=== PATIENT | male | born 1965 | race African-American/Black ===

== ENCOUNTER 2021-02-11 15:03 | Inpatient (IN) | payer OTHER ==
[~2021-02-11] VITALS: Ht 172.7 cm; Wt 83.7 kg
[2021-02-11] MEDS ORDERED: METO50TA7 PO ×2 (15:23→22:23)
[2021-02-11] MEDS ORDERED: SERT50TA29 PO (15:23)
[2021-02-11] MEDS ORDERED: BENA40TA5 PO (15:23)
[2021-02-11] MEDS ORDERED: PROP20TA72 PO (15:23)
[2021-02-11] MEDS ORDERED: ELIQ5TAB PO ×2 (15:23→22:23)
[2021-02-11] MEDS ORDERED: ASPI81CH33 PO (15:23)
[2021-02-11] MEDS ORDERED: MIRT1TAB15 PO (15:23)
[2021-02-11] MEDS ORDERED: ZOCO80TA PO (15:23)
--- NOTE | 2021-02-11 16:20 | REP ---
INDICATION: CHEST PAIN COMPARISON: None. TECHNIQUE: Portable AP view of the chest FINDINGS: The cardiac silhouette appears enlarged. The lung lord are clear without acute consolidation, effusion, or pneumothorax. Skeletal structures are intact. IMPRESSION: Cardiomegaly. No consolidation or effusion appreciated. <Electronically signed by Clarence Mercado > 02/11/21 [id number]
[2021-02-11] MEDS ORDERED: METOPROLOL TART 50 MG TAB PO ONE (16:35)
[2021-02-11] MEDS: METOPROLOL 5 MG/5 ML VIAL IV SCH ×3 (16:44→18:04)
[2021-02-11 16:51] LABS: BASO % 0.7 % (0.0-1.0); EOS # 0.1 10^3/uL (0.0-0.5); EOS % 1.5 % (0.0-3.0); HEMATOCRIT 40.1 % (42.0-52.0); HEMOGLOBIN 12.9 g/dl (13.5-17.5); LYMPH # 1.5 10^3/uL (1.5-5.0); LYMPH % 35.6 % (24.0-44.0); MEAN CORPUSCULAR HEMOGLOBIN 28.9 pg (27.0-33.0); MEAN CORPUSCULAR HGB CONC 32.2 g/dl (32.0-36.5); MEAN CORPUSCULAR VOLUME 89.9 fl (80.0-96.0); MONO # 0.7 10^3/uL (0.0-0.8); MONO % 16.5 % (2.0-8.0); NEUTROPHILS # 1.9 10^3/uL (1.5-8.5); NEUTROPHILS % 45.5 % (36.0-66.0); PLATELET COUNT, AUTOMATED 177 10^3/uL (150-450); RED BLOOD COUNT 4.46 10^6/uL (4.30-6.10); WHITE BLOOD COUNT 4.1 10^3/uL (4.0-10.0)
[2021-02-11 17:16] LABS: ALBUMIN 3.2 GM/DL (3.2-5.2); BILIRUBIN,DIRECT 0.2 MG/DL (0.0-0.2); BILIRUBIN,TOTAL 0.7 MG/DL (0.2-1.0); CALCIUM LEVEL 8.7 MG/DL (8.5-10.1); CREATININE FOR GFR 1.68 MG/DL (0.70-1.30); GLOMERULAR FILTRATION RATE 54.8 (>56); MB/CK RELATIVE INDEX 0.71 (< OR =4); POTASSIUM SERUM 4.2 MEQ/L (3.5-5.1); THYROID STIMULATING HORMONE 1.12 uIU/ML (0.358-3.740); TOTAL PROTEIN 6.6 GM/DL (6.4-8.2); TROPONIN I 0.28 NG/ML (< 0.10)
[2021-02-11] MEDS ORDERED: NS 1,000 ML IV ONE (17:50)
[2021-02-11] MEDS ORDERED: BENAZEPRIL 20 MG TAB PO ONE (18:45)
[2021-02-11] MEDS ORDERED: AMIODARONE HCL 150 MG in IV 1 EA IV STA (20:02)
[2021-02-11] MEDS ORDERED: DIGOXIN INJ 0.5 MG/2 ML AMP (J1160) IV STA (20:08)
[2021-02-11 20:19] LABS: CK-MB VALUE MASS 1.4 NG/ML (<3.6); MB/CK RELATIVE INDEX 1.19 (< OR =4); TROPONIN I 0.25 NG/ML (< 0.10)
[2021-02-11] MEDS ORDERED: APIXABAN 5 MG TAB (ELIQUIS) PO ONE (21:35)
[2021-02-11 21:48] LABS: RSV AMPLIFICATION NEGATIVE (NEGATIVE)
[2021-02-11] MEDS ORDERED: CAPS25CR TOP (22:23)
[2021-02-11] MEDS ORDERED: ERGO500029 PO (22:23)
[2021-02-11] MEDS ORDERED: ZOLO100T PO (22:23)
[2021-02-11] MEDS ORDERED: HOME MED LIST COMPLETE! XX SCH (22:25)
[2021-02-11] MEDS ORDERED: HEPARIN SOD (PORCINE) 5000UNITS/ML 1ML VIAL/SYRINGE IV PRN (22:55)
[2021-02-11] MEDS ORDERED: HEPARIN DRIP 25,000 UNITS in IV 1 EA IV SCH (22:55)
--- OUTSIDE RECORDS SUMMARY | 2021-02-11 23:04 | CCD ---
Author Author [facility] Organization [facility] Address Unknown Phone Unavailable Care Team Providers Care Filling Station Attendant Name Role Phone Maximo Salmeron MD Unavailable Unavailable Maximo Salmeron MD Unavailable Unavailable Maximo Salmeron MD Unavailable Unavailable Maximo Salmeron MD Unavailable Unavailable Maximo Salmeron MD Unavailable Unavailable Maximo Salmeron MD Unavailable [facility]available [facility] Unavailable Unavailable TURRIN, KHURRAM Unavailable Unavailable TURRIN, KHURRAM Unavailable Unavailable TURRIN, KHURRAM Unavailable Unavailable TURRIN, KHURRAM Unavailable Unavailable SHELLIE DOUGLAS Unavailable Unavailable NON, PHYSICIAN STAFF Unavailable Unavailable Re-disclosure Warning The records that you are about to access may contain information from federally-assisted alcohol or drug abuse programs. If such information is present, then the following federally mandated warning applies: This information has been disclosed to you from records protected by federal confidentiality rules (42 CFR part 2). The federal rules prohibit you from making any further disclosure of this information unless further disclosure is expressly permitted by the written consent of the person to whom it pertains or as otherwise permitted by 42 CFR part 2. A general authorization for the release of medical or other information is NOT sufficient for this purpose. The Federal rules restrict any use of the information to criminally investigate or prosecute any alcohol or drug abuse patient.The records that you are about to access may contain highly sensitive health information, the redisclosure of which is protected by Article 27-F of the [facility] Public Health law. If you continue you may have access to information: Regarding HIV / AIDS; Provided by facilities licensed or operated by the [facility] Office of Mental Health; or Provided by the [facility] Office for People With Developmental Disabilities. If such information is present, then the following [facility] mandated warning applies: This information has been disclosed to you from confidential records which are protected by state law. State law prohibits you from making any further disclosure of this information without the specific written consent of the person to whom it pertains, or as otherwise permitted by law. Any unauthorized further disclosure in violation of state law may result in a fine or retirement sentence or both. A general authorization for the release of medical or other information is NOT sufficient authorization for further disc losure. Allergies and Adverse Reactions Type Description Substance Reaction Status Data Source(s ) No Known Allergies No Known Allergies [facility] Encounters Encounter Providers Location Date Indications Data Source(s ) Emergency Attender: Maximo Salmeron MDConsultant: [facility] 01/23/2021 08:03:00 PM EDT - 01/24/2021 10:28:00 AM EDT [facility] Patient discharged. Emergency Attender: KHURRAM BARONConsultant: [facility]IN[facility] 01/22/2021 06:23:00 PM EDT - 01/22/2021 09:35:00 PM EDT [facility] Patient discharged. Outpatient Attender: SHELLIE Aguirresultant: STAFF NON 05/16/2020 08:34:00 AM EST - 05/16/2020 09:34:00 AM EST [facility] Medications Medication Brand Name Start Date Product Form Dose Route Admi nistrative Instructions Pharmacy Instructions Status Indications Reaction Description Data Source(s) 50 mg 01/30/2021 12:00:00 AM EDT tablet 28 TAKE ONE TABLET BY MOUTH TWICE A DAY TAKE ONE TABLET BY MOUTH TWICE A DAY SOLD: 01/30/2021 [facility] Insurance Providers Payer name Policy type / Coverage type Policy ID Covered constitution party ID Covered constitution party's relationship to fuentes Policy Fuentes Plan Information MEDICARE A [id number] Self [id number] Self [id number] Self [id number] OTHER B [id number] Self [id number] OPTUM [facility] [id number] SP [id number] [facility] OPTUM - FAC [id number] ADMINSTRATION -O/P [id number] Problems, Conditions, and Diagnoses Code Display Name Description Problem Type Effective Dates Data Source(s) Z7982 [facility] (current) use of aspirin [facility] (cu rrent) use of aspirin Diagnosis 01/23/2021 08:03:00 PM EDT [facility] Z5320 Procedure and treatment not carried out because of patient's decision for unspecified reasons Procedure and treatment not carried out because of patient's decision for unspecified reasons Diagnosis 01/23/2021 08:03:00 PM EDT [facility] V74386 CONTACT WITH AND SUSPECTED EXPOSURE TO C OVID-19 CONTACT WITH AND SUSPECTED EXPOSURE TO COVID-19 Diagnosis 01/23/2021 08:03:00 PM EDT [facility] E7800 Pure hypercholesterolemia, unspecified P ure hypercholesterolemia, unspecified Diagnosis 01/23/2021 08:03:00 PM EDT [facility] I10 Essential (primary) hypertension Essential (primary) h ypertension Diagnosis 01/23/2021 08:03:00 PM EDT [facility] I4891 Unspecified atrial fibrillation Unspecified atrial fib rillation Diagnosis 01/23/2021 08:03:00 PM EDT [facility] R002 Palpitations Palpitations Diagnosis 01/23/2021 08:03:00 P M EDT [facility] K429 Umbilical hernia without obstruction or gangrene Umbilical hernia without obstruction or gangrene Diagnosis 05/16/2020 08:34:00 AM [facility] R109 Unspecified abdominal pain Unspecified abdominal pain Diagnosis 05/16/2020 08:34:00 AM [facility] Surgeries/Procedures No Information Results ID Date Data Source [id number] 01/29/2021 10:21:00 [place] [address] RESPIRATORY CARE REPORT ==== ---------NAME------- NUMBER SEX AGE ADMIT DISC. XRAY# F/C TYPEGREENE GRAHAM K [id number] 01/23/21 01/24/21 [id number] LBA E/R DATE OF : 1965 M/R# [id number] PH#: [phone] TR-02 LOCATION: EMERGENCY DEPT EKG 28760 COMPLE TE:01/24/21 08:53 CJM 63097 PHYSICIAN: FAVIOLA Florez Name Value Range Interpretation Code Description Data Enid rce(s) Supporting Document(s) ID Date Data Source [id number] 01/28/2021 09:58:00 [place] [address] RESPIRATORY CARE REPORT ==== ---------NAME------- NUMBER SEX AGE ADMIT DISC. XRAY# F/C VAUGHN Jones [id number] 01/22/21 01/22/21180920 LBA E/R DATE OF : 1965 M/R# [id number] PH#: [phone] VT-10 LOCATION: EMERGENCY DEPT EKG 82715 COMPLE TE:01/23/21 04:56 AJP 00146 PHYSICIAN: LORAINE GRIFFIN Name Value Range Interpretation Code Description Data Enid rce(s) Supporting Document(s) ID Date Data Source [id number] 01/24/2021 10:02:00 [place] [address] PROGRESS NOTENAME: EMORY Jones ROOM#: [id number] OF : 1965 MR#: [id number] DATE: 01/23/21 OF SERVICE: 01/24/21SUBJECTIVE: 55-year-old male I was asked to come to the emergency room to admit. He had been in theER the previous night for atrial fibrillation with rapid ventricular response, had signed out AMA. He cameback to the emergency room last night. Again, was in atrial fibrillation with rapid ventricular response of 136.The emergency room doctor had given him Cardizem and placed him on a drip. I went to the emergency roomthis morning to admit the patient. He had just been taken off the drip. His heart rate was in the 70-80s, but thenwas going up to the 100s. When I went into see the patient, assess him and get a history and physical, he statedthat he did not want to stay. He had pets he had to take care of. I reviewed with him that he was in anabnormal heart rhythm. He could have a cardiac arrest. He could have blood clots. He verbalizedunderstanding. He stated that he could not stay and wished to sign out against medical advice. I notified , the emergency room physician, that the patient was refusing to be admitted, assessed and wishedto sign out against medical advice.DD: NABILA Stewart 01/24/21 09:45DT: SONJA 01/24/21 10:01DS: NABILA Stewart 01/24/21 13:44 1 Name Value Range Interpretation Code Description Data Enid rce(s) Supporting Document(s) ID Date Data Source [id number] 01/23/2021 08:03:00 PM EDT [facility] 1 OrderSheet [facility] Emergency Department [address] [place] [address] #: ext- [phone] 01/23/2021 19:49 Patient: GRAHAM CAT Sex: M : 1965 Age: 55yWEIGHT:81.6 kg HEIGHT:68 inches BMI:27.4ALLERGIES: No Known Drug AllergyCHIEF COMPLAINT: palpitationsDIAGNOSIS: Atrial fibrillation, Atrial fibrillation, Hypertensive disorderLAB ORDERSOrder Description Priority Entered Acknowledged InitialedCBC w Diff STAT 20:12 01/23/2021 20:23 Faviola Luciano Jack ; Isaura Reason for ordering with alerts: Clinical consideration given -- 20:12 01/23/2021 Maximo SalmeronTroponin-T STAT 20:12 01/23/2021 20:23 Faviola Luciano Jack ; Isaura Reason for ordering with alerts: Clinical consideration given -- 20:12 01/23/2021 Maximo SalmeronTSH STAT 20:12 01/23/2021 Initialed: 20:12 Maximo Salmeron Jack ; Cancelled: Duplicate Order 20:12 Maximo Salmeron Reason for ordering with alerts: Clinical consideration given -- 20:12 01/23/2021 Maximo SalmeronBMP STAT 20:12 01/23/2021 20:23 Faviola Luciano Jack ; Isaura Reason for ordering with alerts: Clinical consideration given -- 20:12 01/23/2021 Maximo SalmeronCOVID- 19 CAH (Not STAT 20:16 01/23/2021 20:27 Mateo,Symptomatic as Maximo Salmeron ; Eli R.N.Defined by CDC)(01/23/2021) (NotFirst Test) (NotHospitalized) (Not) (NotResident inCongregate CareSetting) (NotEmployed inHealthcare Setting)DIAGNOSTIC STUDY ORDERS 2 OrderSheet [facility] Emergency Department [address] [place] [address] Phone #: ext- [phone] 01/23/2021 19:49 Patient: GRAHAM CAT Sex: M : 1965 Age: 55yOrder Description Priority Entered Acknowledged InitialedMEDICATION/IV/DRIP/FLUID ORDERSOrder Description Priority Entered Acknowledged InitialedCardizem IVP 10 20:12 01/23/2021 20:25 Mateo,mg (NOW x1) Maximo Salmeron ; Eli R.NJerardo Reason for ordering with alerts: Clinical consideration given -- 20:12 01/23/2021 Bienvenido Salmeronm Drip IV : 5 20:12 01/23/2021 20:26 Mateo,mg/hr (Add 125 mg Maximo Salmeron ; Eli R.NJerardo(25 mL) to 100 mLNS to get 125mg/125 mL (1mg/mL)) Reason for ordering with alerts: Clinical consideration given -- 20:12 01/23/2021 aMximo SalmeronAspirin EC PO 325 20:12 01/23/2021 20:24 Mateo,mg (NOW x1, Do Maximo Salmeron ; Eli R.N.not crush or chew)Metoprolol PO 50 09:50 01/24/2021 10:00 Cherrie Fonsecamg (NOW x1) Vero Milian R.N. ;- (benazepril HCL 09:51 01/24/2021 Cancelled: Physician Order 09:58 Raymundo,40 mg Po x 1 dose Vero Milian RStarrnow) ;- (lisinipril 40mg 09:59 01/24/2021 10:00 Garima Fonseca po) Cherrie Fonseca R.N.; R.N. Verbal order per; Vero Milian- (eliquis 5 mg PO) 10:13 01/24/2021 10:19 Cherrie Fonseca Victoria RStarr ; NERAL ORDERSOrder Description Priority Entered Acknowledged InitialedEKG 20:12 01/23/2021 20:23 Faviola Luciano Jack ; Katelyn Reason for ordering with alerts: Clinical consideration given -- 20:12 01/23/2021 Missy Salmeronet: (Low Sodium 08:50 01/24/2021 08:50 DorisDiet) Netta Sandoval RN RN; Verbal order per; Maximo Salmeron 3 OrderSheet [facility] Emergency Department [address] [place] [address] Phone #: ext- [phone] 01/23/2021 19:49 Patient: GRAHAM CAT Sex: M : 1965 Age: 55y[Electronically signed by Maximo Salmeron (07:06 01/24/2021)][Electronically signed by Vero Milian (10:22 01/24/2021)][Electronically signed by Cherrie Fonseca R.N. (01/24/2021)][Electronically locked by Cherrie Fonseca R.N. (01/24/2021)] Name Value Range Interpretation Code Description Data Enid rce(s) Supporting Document(s) ID Date Data Source [id number] 01/23/2021 08:03:00 PM EDT [facility] 1 Medication Reconciliation Report [facility] Emergency Department [address] [place] [address] Phone #: ext- [phone] 01/23/2021 19:49 Patient: GRAHAM CAT Sex: M : 1965 Age: 55yWeight: 81.6 kgHeight/Length: 68 in.BMI: 27.4ALLERGIES: No Known Drug AllergyThe patient's Home Medications are listed below:STOP TAKING THE FOLLOWING MEDICATIONS: Sodium Fluoride Mouthwash Mouth/ThroatCONTINUE TAKING THE FOLLOWING MEDICATIONS: Mirtazapine Oral (15 mg), daily Simvastat in Oral (80 mg), dailyTHE FOLLOWING MEDICATIONS NEED TO BE RECONCILED: Aspirin Oral (81 mg), daily Benazepril HCl Oral (40 mg), daily Capsaicin External (0.025 %) Dextran 70-Hypromellose (PF) Ophthalmic (0.1-0.3 %), 4x a day Ergocalciferol Oral (1.25 MG (99902 UT)), daily Propranolol HCl Oral (20 mg), 2x a day, prn Sertraline HCl Oral (100 mg) 2 tablets, daily Sildenafil Citrate Oral (100 mg), daily, prnThe source(s) of the original Home Medication information:Not obtained. 2 Medication Reconciliation Report [facility] Emergency Department [address] [place] [address] Phone #: ext- [phone] 01/23/2021 19:49 Patient: GRAHAM CAT Sex: M : 1965 Age: 55yThe following Medications were given to the patient in the Emergency Department:Aspirin EC [PO] PO 325 mg, administered: 20:24 1Cardizem [IVP] IVP 10 mg, administered: 20:25 01/23/2021ardizem [IV Drip] Drip IV bolus 0, then 125 mg 5 mg/hr, administered: 20:26 01/23/2021Metoprolol [PO] PO 50 mg, administered: 10:00 01/24/2021isinipril PO 40mg, administered: 10:00 01/24/2021liquis PO 5mg, administered: 10:19 01/24/2021The following Medications were prescribed to the patient:metoprolol tartrate 50 mg tablet Take 1 tablet twice a day for 30 days -- Dispense 60 tablet. Refills: 0.Substitution permitted. Note to Pharmacy - USE Rx DISCOUNT CARD: $7.44, BIN:[id number],PCN:YOHANA, Group:DARRICK, ID:[id number].Pharmacy - [facility] - [address] ; [place], [place] [id number]. .Eliquis 5 mg tablet Take 1 tablet twice a day for 30 days -- Dispense 60 tablet. Refills: 0. Substitutionpermitted. Note to Pharmacy - USE Rx DISCOUNT CARD: $503.47, BIN:[id number], PCN:YOHANA,Group:[id number], ID:[id number].Pharmacy - [facility] #[facility] - [address] ; [place], [place] [id number]. . -- Vero Milian Name Value Range Interpretation Code Description Data Enid rce(s) Supporting Document(s) ID Date Data Source [id number] 01/23/2021 08:03:00 PM EDT [facility] 1 Medication Administration Record [facility] Emergency Department [address] [place] [address] Phone #: ext- [phone] 01/23/2021 19:49 Patient: GRAHAM CAT Sex: M : 1965 Age: 55yWeight: 81.6 kgHeight/Length: 68 inBMI: 27.4ALLERGIES: No Known Drug Allergy Date/Time Medication Administered Medication OrderedGiven CARDIZEM [IVP] (DILTIAZEM HCL) Cardizem IVP 10 mg (NOW x1)20:25 01/23/2021 Dose: 10 mg IVPLEli shaffer, R.N. Site: #1 right ACStart CARDIZEM [IV DRIP] Cardizem Drip IV : 5 mg/hr (Add20:26 01/23/2021 Dose: 125 mg Drip IV 125 mg (25 mL) to 100 mL NS toLEli shaffer, R.N. Rate: 5 mg/hr get 125 mg/125 mL (1 mg/mL))---- Dispensed: 100 mL bagStop Site: #1 right AC08:30 01/24/2021avery Sandoval RNGiven ASPIRIN EC [PO] Aspirin EC PO 325 mg (NOW x1,20:24 01/23/2021 Dose: 325 mg Tablets PO Do not crush or chew)Eli Galindo R.N.Given METOPROLOL [PO] Metoprolol PO 50 mg (NOW x1)10:00 01/24/2021 Dose: 50 mg Tablets Cherrie Michel R.N.Given lisinipril * - (lisinipril 40mg now po)10:00 01/24/2021 Dose: 40mg * Cherrie Michel R.N.Given eliquis * - (eliquis 5 mg PO)10:19 01/24/2021 Dose: 5mg * Cherrie Michel R.N. Name Value Range Interpretation Code Description Data Enid rce(s) Supporting Document(s) ID Date Data Source [id number] 01/23/2021 08:03:00 PM EDT [facility] 1 General Instructions [facility] Emergency Department [address] [place] [address] Phone #: ext- [phone] 01/23/2021 19:49 Patient: GRAHAM CAT Sex: M : 1965 Age: 55y New onset atrial fibrillation with uncontrolled rate.(Electronically signed by Maximo Salmeron 01/24/2021 07:06) New onset atrial fibrillation with uncontrolled rate. Uncontrolled hypertension. The patient should follow up with a primary care provider for blood pressure management.INSTRUCTIONS (you were advised admission as you have new onset atrial fibrillation but you decided to sign out AMA. you were advised of risk of leaving AMA including stroke physical , sexual as well as mental disability. you understand the risks of leaving AA and still decided to leave. take the Metoprolol 2 x day to control the heart rate as well as your benzepril for your BP. take the eliquis 5 mg twice a day to prevent you from developing blood lots. [facility] Kilpatrick in am.). Your Current Medications: STOP TAKING THE FOLLOWING MEDICATIONS: Propranolol HCl Oral : Tablet 20 mg, daily. Sodium Fluoride Mouthwash Mouth/Throat. CONTINUE TAKING THE FOLLOWING MEDICATIONS: Aspirin Oral : Tablet Chewable 81 mg, daily. Benzonatate Oral. Capsaicin External. Dextran 70-Hypromellose (PF) Ophthalmic. 2 General Instructions [facility] Emergency Department [address] [place] [address] Phone #: ext- [phone] 01/23/2021 19:49 Patient: GRAHAM CAT Sex: M : 1965 Age: 55yMirtazapine Oral : Tablet 15 mg, daily.Sertraline HCl Oral : Tablet 100 mg, daily.Sildenafil Citrate Oral : Tablet 100 mg, daily.Simvastatin Oral : Tablet 80 mg, daily.Prescription Medications:metoprolol tartrate 50 mg tablet Take 1 tablet twice a day for 30 days -- Dispense 60 tablet. Refills: 0.Substitution permitted. Note to Pharmacy - USE Rx DISCOUNT CARD: $7.44, BIN:[id number],REHANN:YOHANA, Group:EMR, ID:[id number].[facility] [address] [place] [address] [phone]. .Eliquis 5 mg tablet Take 1 tablet twice a day for 30 days -- Dispense 60 tablet. Refills: 0. Substitutionpermitted. Note to Pharmacy - USE Rx DISCOUNT CARD: $503.47, BIN:[id number], PCN:YOHANA,Group:EMR, ID:[id number].[facility] [address] [place] [address] [phone]. .Follow-up:Follow up with your healthcare provider today. Blood pressure screening was not performed during thisvisit because the patient has an active diagnosis of hypertension. The patient [facility] for blood pressure management.AMA warnings: Time of assessment: 09:42 01/24/2021. Oriented to person, place, and time. Givesappropriate answers and rational explanation of refusal of care. No indication for involuntary commitmentis present, signs of psychosis, auditory hallucinations, delusional thinking or suicidal ideations. N o slurredspeech, visual hallucinations or homicidal ideations. Speaks coherently.Clinical Impression: the patient has the capacity to make decisions regarding the medical care offered.Relevant issues reviewed and discussed with the patient. Aware of suspected diagnosis suggested byscreening exam. The suspected diagnosis, based upon the initiated medical screening exam, is atrialfibrillation with RVR and has been discussed with the patient. Acknowledges understanding of thereasons for recommendations regarding admission to facility. The recommended medical care beingrefused is admisson and has been discussed with the patient. The risks of refusing recommended carethat were disclosed and acknowledged are , quadriplegia, paraplegia, permanent mental impairment,loss of limb, loss of sexual function and loss of current lifestyle. Discharge instructions were provided. ADDITIONAL INFORMATIONEstablished High Blood Pressure 3 General Instructions [facility] Emergency Department [address] [place] [address] Phone #: ext- [phone] 01/23/2021 19:49 Patient: GRAHAM CAT Sex: M : 1965 Age: 55yHigh blood pressure (hypertension) is a long-term (chronic) disease. Often healthcare providers don'tknow what causes it. But it can be caused by certain health conditions and medicines.If you have high blood pressure, you may not have any symptoms. If you do have symptoms, theymay include: Headache Dizziness Changes in your vision Chest pain Shortness of breathBut even without symptoms, high blood pressure that's not treated raises your risk for heart attack,heart failure, kidney disease, and stroke. High blood pressure is a serious health risk and shouldn't beignored.Blood pressure measurements are given as 2 numbers. Systolic blood pressure is the upper number.This is the pressure when the heart contracts. Diastolic blood pressure is the lower number. This isthe pressure when the heart relaxes between beats. You will see your blood pressure readingswritten together. For example, a person with a systolic p ressure of 118 and a diastolic pressure of 78will have 118/78 written in the medical record.Blood pressure is classified as normal, raised (elevated) or stage 1 or stage 2 high blood pressure: Normal blood pressure. Systolic of less than 120 and diastolic of less than 80 (120/80). Elevated blood pressure. Systolic of 120 to 129 and diastolic less than 80. Stage 1 high blood pressure. Systolic is 130 to 139 or diastolic between 80 to 89. Stage 2 high blood pressure. Systolic is 140 or higher or the diastolic is 90 or higher.Home careIf you have high blood pressure, follow these home care gu idelines to help lower your blood pressure.If you are taking medicines for high blood pressure, these methods may reduce or end your need for 4 General Instructions [facility] Emergency Department [address] [place] [address] Phone #: ext- [phone] 01/23/2021 19:49 Patient: GRAHAM CAT Sex: M : 1965 Age: 55ymedicines in the future. Start a weight-loss program if you are overweight. Cut back on how much salt you get in your diet. Here's how to do this: o Don't eat foods that have a lot of salt. These include olives, pickles, smoked meats, and salted potato chips. o Don't add salt to your food at the table. o Use only small amounts of salt when cooking. Start an exercise program. Talk with your healthcare provider about the type of exercise program that would be best f or you. It doesn't have to be hard. Even brisk walking for 20 minutes 3 times a week is a good form of exercise. Don't take medicines that stimulate the heart. This includes many tjdw-wgv-rhmpenr cold and sinus decongestant pills and sprays, as well as diet pills. Check the warnings about high blood pressure on the label. Before buying any fbhf-yog-wgbmfnk medicines or supplements, always ask the pharmacist about the product's possible interaction with your high blood pressure and your high blood pressure medicines. Stimulants such as amphetamine or cocaine could be deadly for someone with high blood pressure. Never take these. Limit how much caffeine you get in your diet. Switch to caffeine-free products. Stop smoking. If you are a long-time smoker, this can be hard. Talk with your healthcare provider about medicines and nicotine replacement options to help you. Also join a stop-smoking program . This makes it more likely that you will quit for good. Learn how to handle stress. This is an important part of any program to lower blood pressure. Learn about relaxation methods such as meditation, yoga, or biofeedback. If your provider prescribed medicines, take them exactly as directed. Missing doses may cause your blood pressure get out of control. If you miss a dose, check with your healthcare provider or pharmacist about what to do. Think about buying an automatic blood pressure machine to check your blood pressure at home. Ask your provider for a recommendation. You can get one of these at most pharmacies.Using a home blood pressure monitorThe [place] Heart Association advises the following guidelines for home blood pressure monitoring: Don't smoke or drink coffee for 30 minutes before taking your blood pressure. 5 General Instructions [facility] Emergency Department [address] [place] [address] Phone #: ext- [phone] 01/23/2021 19:49 Patient: GRAHAM CAT Sex: M : 1965 Age: 55y Go to the bathroom before the test. Relax for 5 minutes before taking the measurement. Sit with your back supported (don't sit on a couch or soft chair). Keep your feet on the floor uncrossed. Place your arm on a solid flat surface (such as a table) with the upper part of the arm at heart level. Place the middle of the cuff directly above the bend of the elbow. Check the monitor's instruction manual for an illustration. Take multiple readings. When you measure, take 2 to 3 readings one minute apart and record all of the results. Take your blood pressure at the same time every day, or as your healthcare provider advises. Record the date, time, and blood pressure reading. Take the record with you to your next healthcare appointment. If your blood pressure monitor has a built-in memory, just take the monitor with you to your next appointment. Call your provider if you have several high readings. Don't be frightened by one high blood pressure reading. But if you get a few high readings, check in with your healthcare provi amie.Follow-up careYou will need to see your healthcare provider regularly. This is to check your blood pressure and tomake changes to your medicines. Make a follow-up appointment as directed. Bring the record of yourhome blood pressure readings to the appointment.Call [phone] you have any of these: Blood pressure of 180/120 or higher Chest pain or shortness of breath Weakness of an arm or leg or one side of the face Problems speaking or seeingWhen to get medical adviceCall your healthcare provider right away if any of these occur: Severe headache Throbbing or rushing sound in the ears 6 General Instructions [facility] Emergency Department [address] [place] [address] Phone #: ext- [phone] 01/23/2021 19:49 Patient: GRAHAM CAT Sex: M : 1965 Age: 55y Nosebleed Sudden severe pain in your belly (abdomen) Extreme drowsiness, confusion, or fainting Dizzine ss or spinning feeling (vertigo) [employer]. [address] [place] [address], [place] [address]. All rights reserved. This information is not intended as asubstitute for professional medical care. Always follow your healthcare professional's instructions.Atrial FibrillationAtrial fibrillation is a condition in which the heart beats in an irregular pattern. It is the most commonabnormal heart rhythm. It is caused by a problem in the heart's electrical pathways within the muscleof the upper chambers of the heart (atria). It can be a sign of heart disease or other health problemsthat affect the heart.Heart palpitations are a common symptom of atrial fibrillation. This is the feeling that your heart isfluttering, or beating fast, hard, or irregular. When the heart beats too fast, it doesn't pump blood verywell. This can cause other symptoms such as anxiety, fatigue, shortness of breath, chest pain,dizziness, or fainting. Atrial fibrillation may come and go. It can last from a few hours to a couple of 7 General Instructions [facility] Emergency Department [address] [place] [address] ne #: ext- [phone] 01/23/2021 19:49 [id number] Sex: M : 1965 Age: 55ydays. 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 They include feeling less able to exercise.Some people have no symptoms.Atrial fibrillation is more common in older adults. It may be caused by heart disease or otherconditions in the body that affect the heart. They include: Coronary artery disease (atherosclerosis) . It is sometimes called blocked arteries. High blood pressure Disease of the heart valves Enlarged heart Heart failureAtrial fibrillation can also occur without heart disease because of: Overactive thyroid (hyperthyroid) Chronic lung disease (COPD, emphysema, or bronchitis) Heavy alcohol use Heart stimulants such as cocaine, amphetamines, diet pills, certain decongestant cold medicines, caffeine, or nicotine Infection Blood clot in the lung (pulmonary embolus) Diabetes Chronic kidney disease Obesity Extreme and continued athletic conditioning Certain genetic diseasesTreating or removing these causes will help your treatment for atrial fibrillation. It will also make it lesslikely for it to come back.Atrial fibrillation can alternate back and forth with another abnormal rhythm called atrial flutter. Atrialflutter is a more regular heart rhythm. It also linked to an increased risk for stroke. Proper treatmentcan lower your risk for stroke. 8 General Instructions [facility] Emergency Department [address] [place] [address] Phone #: ext- [phone] 01/23/2021 19:49 Patient: GRAHAM CAT Sex: M : 1965 Age: 55yHome careFollow these guidelines when caring for yourself at home: Go back to your usual activities as soon as you are feeling back to normal. If you smoke, stop smoking. Contact your healthcare provider or a local stop- smoking program for help. Don't use stimulants like alcohol, cocaine, amphetamines, diet pills, certain decongestant cold medicines, caffeine, or nicotine. If your provider prescribed medicine to stop atrial fibrillation from coming back, take it exactly as directed. Some medicines must be taken every day, not just when you have symptoms. This will help them work as they should. If you were prescribed a blood-thinning medicine called warfarin to lower your risk for stroke, have your blood tested regularly as advised by your provider. This will make sure you are getting the dose that is right for you. It also lowers your risk for side effects. You may have been prescribed other blood-thinning medicines that don't need regular testing.Follow-up careFollow up with your healthcare provider, or as advised.When to seek medical adviceCall your healthcare provider right away if any of these following occur: Swelling in the legs that gets worse Unexpected weight gain Bleeding easier than normal Pain, redness, or swelling in one legCall 911Calling 911 is the fastest and safest way to get the emergency department. The paramedics can alsostart treatment on the way to the hospital, if needed.Call 911 or seek medical help right away if any of the following occur: Weakness of an arm or leg or one side of the face Chest pain 9 General Instructions [facility] Emergency Department [address] [place] [address] Phone #: ext- [phone] 01/23/2021 19:49 Patient: GRAHAM CAT Sex: M : 1965 Age: 55y Shortness of breath, or feeling that you can't get enough air Feeling lightheaded, faint, or dizzy Your heartbeat is very rapid, slow, or irregular compared with your regular heartbeat Bleeding that is not easily controlled Trouble with speech or vision Extreme drowsiness, confusion, dizziness, or fainting [phone] [employer]. [address] [place] [address]. All rights reserved. This information is not intended as asubstitute for professional medical care. Always follow your healthcare professional's instructions. You have been given the following additional information: Hypertension, Established Atrial Fibrillation(Electronically signed by Vero Milian 01/24/2021 10:22) Name Value Range Interpretation Code Description Data Enid rce(s) Supporting Document(s) ID Date Data Source [id number] 01/23/2021 08:03:00 PM EDT [facility] 1 Clinical Report - Nurses [facility] Emergency Department [address] [place] [address] Phone #: ext- [phone] 01/23/2021 19:49 Patient: GRAHAM CAT Sex: M : 1965 Age: 55yTRIAGEArrived by private vehicle.Acuity: LEVEL 2.Chief Complaint: (irregular heart beat).19:58 01/23/21. Alert. No acute distress.This started yesterday. ( Patient was sent to this ED from [place] yesterday for new-onset A-Fib. Pt wasevaluated in ED and was to be [facility]; pt signed out AMA last night to makearrangements for his pets. Pt states he has returned to be evaluated for his a-fib again.). No difficultybreathing, fever or cough.SEPSIS SCREEN: SIRS SCREEN NEGATIVE: heart rate greater than 90. SEPSIS SCREEN NEGATIVE.No suspected or confirmed signs of infection present. --19:58 01/23/21 Natali Colón R.N.19:58 01/23/2021 BP: 159/119. HR: 141. RR: 20. Temp: 97.7 F. Pain level now 0/10. --19:58 01/23/21Natali Colón R.N.Weight: 81.6 kg. Height/Length: 68 inches. BMI: 27.4. --19:56 01/23/21 Natali Colón R.N.MedicationsAspirin Oral (Tablet Delayed Release 81 mg), daily. Capsaicin External (Cream 0.025 %). Dextran 70-Hypromellose (PF) Ophthalmic (Solution 0.1- 0.3 %), 4x a day. Propranolol HCl Oral (Tablet 20 mg), 2x a day as needed. Sertraline HCl Oral (Tablet 100 mg) 2 tablets, daily. Sildenafil Citrate Oral (Tablet 100 mg), daily as needed. --20:05 01/23/21 Cherrie Fonseca R.N. Mirtazapine Oral (Tablet 15 mg), daily. Simvastatin Oral (Tablet 80 mg), daily. Sodium Fluoride Mouthwash Mouth/Throat. --20:05 01/23/21 Natali Colón R.N. Benazepril HCl Oral (Tablet 40 mg), daily. --09:43 01/24/21 Cherrie Fonseca R.N. Ergocalciferol Oral (Capsule 1.25 MG (44256 UT)), daily. --09:46 01/24/21 Cherrie Fonseca R.N.The following entry was struck by Cherrie Fonseca R.N., 09:46 (01/24/21) Reason - other. Benzonatate Oral. --20:05 01/23/21 Natali Colón R.N.The following entry was struck and corrected by Cherrie Fonseca R.N., 09:45 (01/24/21) Reason for correction -other(correction). Sildenafil Citrate Oral (Tablet 100 mg), daily. --20:05 01/23/21 Natali Colón R.N.The following entry was struck and corrected by Cherrie Fonseca R.N., 09:45 (01/24/21) Reason for correction -other(correction). 2 Clinical Report - Nurses [facility] Emergency Department [address] [place] [address] Phone #: ext- [phone] 01/23/2021 19:49 Patient: GRAHAM CAT Sex: M : 1965 Age: 55ySertraline HCl Oral (Tablet 100 mg), daily. --20:05 01/23/21 Natali Colón R.N.The following entry was struck and corrected by Cherrie Fonseca R.N., 09:44 (01/24/21) Reason for correction -other(correction).Propranolol HCl Oral (Tablet 20 mg), daily. --20:05 01/23/21 Natali Colón R.N.The following entry was struck and corrected by Cherrie Fonseca R.N., 09:43 (01/24/21) Reason for correction -other(correction).Dextran 70-Hypromellose (PF) Ophthalmic. --20:05 01/23/21 Natali Colón R.N.The following entry was struck and corrected by Cherrie Fonseca R.N., 09:43 (01/24/21) Reason for correction -other(correction).Capsaicin External. --20:05 01/23/21 Natali Colón R.N.The following entry was struck and corrected by Cherrie Fonseca R.N., 09:43 (01/24/21) Reason for correction - other(correction).Aspirin Oral (Tablet Chewable 81 mg), daily. --20:05 01/23/21 Natali Colón R.N. .AllergiesNo Known Drug Allergy. --20:05 01/23/21 Natali Colón R.N.PROBLEMS:Atrial Fibrillation.Anxiety Reaction.Hypercholesterolemia.PTSD.Hypertension. --20:06 01/23/21 Natali Colón R.N.ADDITIONAL SURGERIES:Inguinal Hernia Repair.Knee Surgery. --20:06 01/23/21 Natali Colón R.N.Dkfnogg21:58 01/23/21.PAST MEDICAL HX: Immunizations: up-to-da te.SOCIAL HX: Never smoker. No alcohol use or drug use. He was offered HIV testing but declined andhepatitis C testing but declined. He has not traveled outside the [place]Infectious disease exposure: The patient was not exposed to C- diff, MRSA, VRE or Coronavirus.SELF HARM ASSESSMENT: Self harm assessment was performed. The patient answered "no" to thequestion(s) "Have you recently felt down, depressed, or hopeless?", "Do you have thoughts of harming orkilling yourself?", "Do you have a plan for harming or killing yourself?" and "Have you recently had thoughtsabout harming or killing others?".ABUSE ASSESSMENT: No report of abuse.NUTRITIONAL RISK ASSESSMENT: The nutritional risk assessment revealed no deficiencies. 3 Clinical Report - Nurses [facility] Emergency Department [address] [place] [address] Phone #: ext- [phone] 01/23/2021 19:49 Patient: GRAHAM CAT Sex: M : 1965 Age: 55y FUNCTIONAL ASSESSMENT: Functional assessment: no impairments noted. LEARNING NEEDS ASSESSMENT: The learning needs assessment revealed no barriers. FALL RISK ASSESSMENT: Fall risk assessment completed. No risk factors identified. SKIN INTEGRITY ASSESSMENT: Skin integrity risk assessment completed. No skin integrity risk identified. --01/23/21 Natali Colón R.N. FAMILY HX: Father: Diabetes Mellitus. --20:01/23/21 Maximo Salmeron Mother: Essential Hypertension. --20:01/23/21 Maximo Salmeron. Interventions 19:01/23/21. Identification band on patient. To treatment room. --01/23/21 Natali Colón R.N.PHYSICAL ASSESSMENTGENERAL / NEURO / PSYCH: Alert. Oriented X 4. Appears in no acute distress.HEENT: Mucous membranes are pink.RESPIRATORY: Respirations not labored. Chest nontender. Breath sounds within normal limits.CVS: Cardiac rhythm: atrial with rapid ventricular response.GI / : Abdomen soft and nontender.EXTREMITIES: No lower extremity edema.SKIN: Skin is warm and dry. Normal skin turgor. Skin is non-tender. --20:01/23/21 Eli Galindo R.N.NURSING PROGRESS NOTES20:01/23/21. monitoring tech, NIBP monitor and pulse oximeter placed on patient; registered nurse cardiac telemetry-Lead II; monitor alarms on. Patient gowned. Reassurance given. Two patient identifiers checked. Calllight placed in reach. Side rails up x 1. Bed placed in lowest position. Brakes of bed on. Patient readyfor evaluation- ED physician and PA notified. --20:01/23/21 Natali Colón R.N. 20:07 01/23/2021 Site #1 started via IV in the right antecubital space with an 20g angiocath, with aseptic technique and good blood return; one attempt. Saline lock flushed with 10 mL saline. --20:01/23/21 Eli Galindo R.N. 20:01/23/2021 Aspirin EC PO Tablets 325 mg given. Allergies verified and confirmed 5 rights. Information reviewed with patient including reason for taking this medication, signs of allergic reaction and precautions. Verbalizes understanding. --20:01/23/21 Eli Galindo R.N. 20:01/23/2021 Cardizem (dilTIAZem HCl) IVP 10 mg given over 2 minute(s) via site #1. Allergies verified and confirmed 5 rights. IV patency established. IV site checked: no pain, redness, or swelling. IV flushed thoroughly pre- and post-medication administration. IVP given by RN. Information reviewed with patient including reason for taking this medication, signs of allergic reaction and precautions. Verbalizes 4 Clinical Report - Nurses [facility] Emergency Department [address] [place] [address] Phone #: ext- [phone] 01/23/2021 19:49 Patient: GRAHAM CAT Sex: M : 1965 Age: 55yunderstanding. --20:01/23/21 Eli Galindo R.N.20:01/23/2021 Started 125 mg of Cardizem Drip IV in bag #1 100 mL; at 5 mg/hr via site #1. via IVpump. Allergies verified and confirmed 5 rights. IV patency established. IV site checked: no pain, redness,or swelling. IV flushed thoroughly pre- and post-medication administration. Information reviewed withpatient including reason for taking this medication, signs of allergic reaction and precautions. Verbalizesunderstanding. --20:01/23/21 Eli aGlindo R.N.20:27 01/23/21. BP: 152/122. MAP: 132. HR: 133. RR: 16. O2 saturation: 100%. Additional comments:cardiazem gtt started . --20:28 01/23/21 Eli Galindo R.N.GENERAL / NEURO / PSYCH: Denies anxiety.HEENT: Denies headache.RESPIRATORY: Denies difficulty breathing. No respiratory distress. [place] th sounds normal.CVS: Denies chest pain. Cardiac rhythm: atrial fibrillation with rapid ventricular response.GI / : Denies nausea.SKIN: Skin is warm and dry. Skin color within normal limits. --20:28 01/23/21 Eli Galindo R.N.monitoring tech, NIBP monitor and pulse oximeter placed on patient. Reassessment after medicationadministered. He reports no complaints and he has had no adverse reaction. Overall patient status isimproved. ( Cardizem gtt infusing at 5mg /hr).GENERAL / NEURO / PSYCH: Denies anxiety.HEENT: Denies headache.RESPIRATORY: Denies difficulty breathing.CVS: Denies chest pain.GI / G U: Denies nausea. --20:39 01/23/21 Eli Galindo R.N.GENERAL / NEURO / PSYCH: Denies anxiety.HEENT: Denies headache.RESPIRATORY: Denies difficulty breathing. No respiratory distress. Breath sounds normal.CVS: Denies chest pain.GI / : Denies nausea.SKIN: Skin is warm and dry. Skin color within normal limits. --20:56 01/23/21 Eli Galindo R.N.20:55 01/23/21. HR: 110. RR: 19. O2 saturation: 99%. Pain level now: 0/10. --20:56 01/23/21 Eli Galindo R.N.21:06 01/23/21. BP: 128/108. MAP: 114. HR: 118. RR: 19. O2 saturation: 99%. Pain level now: 0/10.--21:06 01/23/21 Eli Galindo R.N.RESPIRATORY: No respiratory distress. Breath sounds normal.CVS: Cardiac rhythm: atrial fibrillation.SKIN: Skin is warm and dry. Skin color within normal limits. --21:07 01/23/21 Eli Galindo R.N. 5 Clinical Report - Nurses [facility] Emergency Department [address] [place] [address] Phone #: ext- [phone] 01/23/2021 19:49 Patient: GRAHAM CAT Sex: M : 1965 Age: 55y( Cardizem gtt increased to 10 mg/hr per MD order).GENERAL / NEURO / PSYCH: Denies anxiety.HEENT: Denies headache.RESPIRATORY: Denies difficulty breathing. No respiratory distress. Breath sounds normal.CVS: Denies chest pain.GI / : Denies nausea.SKIN: Skin is warm and dry. --21:23 01/23/21 Eli Galindo R.N.21:23 01/23/21. HR: 116. --21:23 01/23/21 Eli Galindo R.N.CVS: Cardiac rhythm: atrial fibrillation. --21:23 01/23/21 Eli Galindo R.N.22:11 01/23/21. BP: 139/103. MAP: 115. HR: 101. RR: 17. O2 saturation: 99% on room air. Additionalcomments: cardizem gtt at 10 ml/hr . --22:13 01/23/21 Eli Galindo R.N.Rounding: Pain: denies pain. Position: states comfortable. Per true care / toileting: assisted with toileting.Proximity of possessions / care items: call light within easy reach. Plug ins: assured IV pump plugged in;checked status of equipment in use; located all cords, tubes, and lines to prevent fall hazard. Setexpectations: advised patient of rounding protocol timing and asked if they needed anything else at thistime. --22:13 01/23/21 Eli Galindo R.N.GENERAL / NEURO / PSYCH: Denies anxiety.HEENT: Denies headache.RESPIRATORY: Denies difficulty breathing. No respiratory distress present. No respiratory distress.Breath sounds normal. No decreased breath sounds.CVS: Denies chest pain. Cardiac rhythm: atrial fibrillation.GI / : Denies nausea.SKIN: Skin is warm and dry. Skin color within normal limits. Skin color normal. --22:13 01/23/21 Eli Galindo R.N.22:21 01/23/21. BP: 148/112. MAP: 124. HR: 92. RR: 16. O2 saturation: 99%. Pain level now: 0/10.--22:22 01/23/21 Eli Galindo R.N.Patient waiting for admit bed. --22:23 01/23/21 Eli Galindo R.N.22:44 01/23/21. BP: 130/102. MAP: 111. HR: 85. RR: 16. O2 saturation: 98% on room air. --22:4501/23/21 Eli Galindo R.N.The patient reports no complaints, he is resting quietly and he has had no adverse reaction. ( Cardizemgtt remain at 10 mg/hr. cont. cardiac monitoring in place).GENERAL / NEURO / PSYCH: Denies anxiety.HEENT: Denies headache.RESPIRATORY: Denies difficulty breathing. No respiratory distress. Breath sounds normal.CVS: Denies chest pain. 6 Clinical Report - Nurses [facility] Emergency Department [address] [place] [address] Phone #: ext- [phone] 01/23/2021 19:49 Patient: GRAHAM CAT Sex: M : 1965 Age: 55yGI / : Denies nausea.SKIN: Skin is warm and dry. Skin color within normal limits. --22:46 01/23/21 Eli Galindo R.N.22:51 01/23/21. BP: 122/104. MAP: 110. HR: 86. RR: 17. O2 saturation: 99%. Pain level now: 010.--22:52 01/23/21 Eli Galindo R.N.Cardiac rhythm: atrial fibrillation.GENERAL / NEURO / PSYCH: Denies anxiety.HEENT: Denies headache.RESPIRATORY: Denies difficulty breathing. No respiratory distress. Breath sounds normal.CVS: Denies chest pain.GI / : Denies nausea.SKIN: Skin is warm and dry. Skin color within normal limits. --22:52 01/23/21 Eli Galindo R.N.The patient reports no complaints and he is calm and resting quietly.GENERAL / NEURO / PSYCH: Denies anxiety.HEENT: Denies headache.RESPIRATORY: Denies difficulty breathing. No respiratory distress. Breath sounds normal.CVS: Denies chest pain. Cardiac rhythm: atrial fibrillation.GI / : Denies nausea.SKIN: Skin is warm and dry. Skin color within normal limits. --23:23 01/23/21 Eli Galindo R.N.23:22 01/23/21. BP: 137/100. MAP: 112. HR: 93. RR: 16. O2 saturation: 96% on room air. --23: Eli Galindo R.N.23:34 01/23/21. HR: 96. --23:34 01/23/21 Eli Galindo R.N.00:36 01/24/21. BP: 130/98. MAP: 108. HR: 78. RR: 16. O2 saturation: 18%. Pain level now: 010.--00:38 01/24/21 Eli Galindo R.N.Rounding: Pain: assessed pain level and denies pain. Position: states comfortable. Personal care /toileting: denies toileting needs. Proximity of possessions / care items: call light within easy reach. Plug ins:assured IV pump plugged in; checked status of equipment in use; located all cords, tubes, and lines toprevent fall hazard. Set expectations: advised patient of rounding protocol timing and asked if they neededanything else at this time. The patient reports no complaints.GENERAL / NEURO / PSYCH: Denies anxiety.HEENT: Denies headache.RESPIRATORY: Denies difficulty breathing. No respiratory distress. Breath sounds normal.CVS: Denies chest pain. Cardiac rhythm: atrial fibrillation.GI / : Denies nausea.SKIN: Skin is warm and dry. Skin color within normal limits. --00:38 01/24/21 Eli Galindo R.N.The patient reports no complaints.GENERAL / NEURO / PSYCH: Denies anxiety. 7 Clinical Report - Nurses [facility] Emergency Department [address] [place] [address] Phone #: ext- [phone] 01/23/2021 19:49 Patient: GRAHAM CAT Sex: M : 1965 Age: 55yHEENT: Denies headache.RESPIRATORY: Denies difficulty breathing. No respiratory distress. Breath sounds normal.CVS: Denies chest pain. Cardiac rhythm: atrial fibrillation.GI / : Denies nausea.SKIN: Skin is warm and dry. Skin color within normal limits. --01:17 01/24/21 Eli Galindo R.N.01:16 01/24/21. BP: 135/106. MAP: 115. HR: 90. RR: 16. O2 saturation: 97% on room air. Pain level now:010. --01:17 01/24/21 Eli Galindo R.N.02:46 01/24/21. BP: 141/111. MAP: 121. HR: 90. RR: 17. O2 saturation: 99%. Pain level now: 0/10.--02:52 01/24/21 Eli Galindo R.N.The patient reports no complaints and he is sleeping. ( pt. resting comfortably on stretcher cardiacmonitoring in place pt. awaiting admission).GENERAL / NEURO / PSYCH: Denies anxiety.HEENT: Denies headache.RESPIRATORY: Denies difficulty breathing. No respiratory distress. Breath sounds normal.CVS: Denies chest pain. Cardiac rhythm: atrial fibrillation.GI / : Denies nausea.SKIN: Skin is warm and dry. Skin color within normal limits. --02:52 01/24/21 Eli Galindo R.N.03:22 01/24/21. BP: 138/118. MAP: 124. HR: 80. RR: 17. O2 saturation: 96% on room air. Pain level now:0. --03:23 01/24/21 Eli Galindo R.N.Rounding: Pain: assessed pain level and denies pain. Position: states comfortable. Proximity ofpossessions / care items: call light within easy reach and moved items closer. Plug ins: assured IV pumpplugged in; checked status of equipment in use; located all cords, tubes, and lines to prevent fall hazard.Set expectations: advised patient of rounding protocol timing and asked if they needed anything else at thistime. The patient reports no complaints and he is resting quietly.GENERAL / NEURO / PSYCH: Denies anxiety.HEENT: Denies headache.RESPIRATORY: Denies difficulty breathing. No respiratory distress. Breath sounds normal.CVS: Denies chest pain. Cardiac rhythm: atrial fibrillation.GI / : Denies nausea.SKIN: Skin is warm and dry. Skin color within normal limits. --03:23 01/24/21 Eli Galindo R.N.04:33 01/24/21. BP: 150/113. MAP: 125. HR: 84. RR: 16. O2 saturation: 97% on room air. Pain level now:0. --04:33 01/24/21 Eli Galindo R.N.The patient reports no complaints and he is resting quietly.GENERAL / NEURO / PSYCH: Denies anxiety.HEENT: Denies headache.RESPIRATORY: Denies difficulty breathing. No respiratory distress. Breath sounds normal.CVS: Denies chest pain. Cardiac rhythm: atrial fibrillation. 8 Clinical Report - Nurses [facility] Emergency Department [address] [place] [address] Phone #: ext- [phone] 01/23/2021 19:49 Patient: GRAHAM CAT Sex: M : 1965 Age: 55yGI / : Denies nausea.SKIN: Skin is warm and dry. Skin color within normal limits. --04:34 01/24/21 Eli Galindo R.N.21:22 01/23/2021 Cardizem Drip IV via IV site #1 Rate Changed: bag #1 increased to 10 mg/hr via IVpump. Confirmed 5 Rights. IV patency established. IV site checked: no pain, redness, or swelling. IVflushed thoroughly. (Verbal order per SALMERON). --04:35 01/24/21 Eli Galindo R.N.The patient reports no complaints and he is resting quietly.GENERAL / NEURO / PSYCH: Denies anxiety.HEENT: Denies headache.RESPIRATORY: Denies difficulty breathing. No respiratory distress. Breath sounds normal.CVS: Denies chest pain. Cardiac rhythm: atrial fibrillation.GI / : Denies nausea.SKIN: Skin is warm and dry. Skin color within normal limits. --06:23 01/24/21 Eli Galindo R.N.06:22 01/24/21. BP: 142/117. MAP: 125. HR: 75. RR: 16. O2 saturation: 93% on room air. Pain level now:0/10. --06:23 01/24/21 Eli Galindo R.N.Patient waiting for admit bed. --06:23 01/24/21 Eli Galindo R.N.07:05 01/24/21. Care transferred and report received (from Eli Galindo RN). --07:18 01/24/21 RYAN Blackman07:18 01/24/21. BP: 144/103. MAP: 116. HR: 93. RR: 20. O2 saturation: 95% on room air. Temp: 97.7 F.Pain level now: 07/03. Describes the quality as dull and aching. Additional comments: headache. --07: Netta Sandoval RN08:00 01/24/21. BP: 131/104. MAP: 113. HR: 86. RR: 20. O2 saturation: 97%. Pain level now: 07/03.--09:29 01/24/21 Netta Sandoval RN08:00 01/24/21. ( Cardiology, Estrella Mtz DYE MIXER to admit patient). --09:29 01/24/21 Netta Sandoval RN08:44 01/24/21. ( [facility] called, no beds available). --09:32 01/24/21 Netta Sandoval RN09:28 01/24/21. ( Patient states to Estrella Mtz that he does not want to be admitted to hospital haspets at home that need to be cared for.). --09:34 01/24/21 Netta Sandoval RN09:48 01/24/21. BP: 152/117. MAP: 128. HR: 103. RR: 31. O2 saturation: 98%. --09:48 01/24/21 Cherrie Fonseca R.N.08:30 01/24/2021 Cardizem Drip IV via IV site #1 Discontinued: bag #1 STOPPED. Total amount infused:125 mL. IV patency established. IV site checked: no pain, redness, or swelling. IV flushed thoroughly.--09:50 01/24/21 Netta Sandoval RN 9 Clinical Report - Nurses [facility] Emergency Department [address] [place] [address] Phone #: ext- [phone] 01/23/2021 19:49 Patient: GRAHAM CAT Sex: M : 1965 Age: 55y 10:00 01/24/2021 Metoprolol PO Tablets 50 mg given. Allergies verified and confirmed 5 rights. Information reviewed with patient including reason for taking this medication, signs of allergic reaction and precautions. Verbalizes understanding. --10:01/24/21 Cherrie Fonseca R.N. 10:01/24/2021 lisinipril * PO 40mg --10:01/24/21 Cherrie Fonseca R.N. 10:01/24/2021 eliquis * PO 5mg --10:01/24/21 Cherrie Fonseca R.N. 10:01/24/2021 Site #1 removed upon discharge. Pressure dressing applied. --10:01/24/21 Cherrie Fonseca R.N. Intake Output PO intake: 120 mL. Urine output: 600 mL with return of yellow-colored clear urine. Urine: normal smelling. --02:52 01/24/21 Eli Galindo R.N. DISPOSITION / DISCHARGE ( U nurse Ankita, RYAN refusing to accept patient for admission. notified.). --21:29 01/23/21 Isaura Luciano ( MD Estrella called about admission orders for patient. States she will put in admission orders in the am since patient is not able to go to the floor.). --22:54 01/23/21 Isaura Luciano 10:19 01/24/21. BP: 146/123. MAP: 130. HR: 100. RR: 18. O2 saturation: 97%. Temp: 98 F. Pain level now: 0/10. Additional comments: Dr. Milian aware of vital signs. --10:20 01/24/21 Cherrie Fonseca R.N. Condition at departure: improved. No learning barriers present. Discharge instructions provided and reviewed with the patient. Reviewed medication(s) side effects, precautions, dosing and course information. Prescription(s) given to the patient and sent electronically to pharmacy. Patient verbalized understanding. Written instructions provided in Icelandic. ( call ct today for appointment). The patient left the Emergency Department against medical advice; patient was unaccompanied. The patient appears to be alert, oriented x4 and coherent. He notified staff prior to leaving the department and stated is leaving (does not have anyone to watch dog). Notified of patient departure. Prior to leaving, he was advised to stay for completion of treatment and return if needed. He was informed of the risks of leaving and verbalized understanding of these risks. He left the Emergency Department ambulatory and via private vehicle. ( signed discharge paperwork). The patient was discharged home and unaccompanied at time of discharge. He left ambulatory and via private vehicle. Patient driving. --10:01/24/21 Cherrie Fonseca R.N. Departure time: 10:28 01/24/2021. --10:28 01/24/21 Cherrie Fonseca R.N. 10 Clinical Report - Nurses [facility] Emergency Department [address] [place] [address] Phone #: ext- [phone] 01/23/2021 19:49 Patient: GRAHAM CAT Sex: M : 1965 Age: 55yLocked/Released at 01/24/2021 10:28 by Cherrie Fonseca R.N. Name Value Range Interpretation Code Description Data Enid rce(s) Supporting Document(s) ID Date Data Source [id number] 01/23/2021 08:03:00 PM EDT [facility] 1 Clinical Report - Physicians/Mid Levels [facility] Emergency Department [address] [place] [address] Phone #: ext- [phone] 01/23/2021 19:49 Patient: GRAHAM CAT Sex: M : 1965 Age: 55y Time Seen: 20:13 01/23/2021. Arrived- By private vehicle. Historian- patient. Disposition decision: 21:20 01/23/2021.HISTORY OF PRESENT ILLNESS Chief Complaint: PALPITATIONS. This started yesterday and is still present. Severity: none. Modifying factors. Not worsened by anything. No loss of appetite or fatigue. No current or associated symptoms. (Although he doesn't feel like his heart is racing, he was diagnosed with new onset Atrial fibrillation yesterday. Returning to ED for admission). Similar symptoms previously. None. Recent medical care: The patient was seen recently in the emergency department and office. ( At new doctor's office yesterday morning, he was told his heart rate was elevated).REVIEW OF SYSTEMSThe patient has had fever. No sore throat, nasal congestion, difficulty breathing, chest pain or abdominalpain. No nausea, vomiting, diarrhea, difficulty with urination or back pain. No headache or blackouts.No difficulty with ambulation. All other systems reviewed and are negative.PAST HISTORYSee nurses notes. Problems: Atrial Fibrillation. Anxiety Reaction. Hypercholesterolemia. PTSD. Hypertension. Additional Surgeries: Inguinal Hernia Repair. Knee Surgery. Medications: Aspirin Oral (Tablet Chewable 81 mg), daily. Benzonatate Oral. Capsaicin External. Dextran 70-Hypromellose (PF) Ophthalmic. Mirtazapine Oral (Tablet 15 mg), daily. Propranolol HCl Oral (Tablet 20 mg), daily. 2 Clinical Report - Physicians/Mid Levels [facility] Emergency Department [address] [place] [address] Phone #: ext- [phone] 01/23/2021 19:49 Patient: GRAHAM CAT Sex: M : 1965 Age: 55y Sertraline HCl Oral (Tablet 100 mg), daily. Sildenafil Citrate Oral (Tablet 100 mg), daily. Simvastatin Oral (Tablet 80 mg), daily. Sodium Fluoride Mouthwash Mouth/Throat. Allergies: No Known Drug Allergy.SOCIAL HISTORYNever smoker. No alcohol use.FAMILY HISTORYFather: Diabetes Mellitus.Mother: Essential Hypertension.ADDITIONAL NOTESThe nursing notes have been reviewed.PHYSICAL EXAMVital Signs: 01/23/2021 20:27 BP: 152/122. MAP: 132. HR: 133. RR: 16. O2 saturation: 100%.01/23/2021 19:58 BP: 159/119. MAP: 132. HR: 141. RR: 20. Temp: 97.7 F.Appearance: Alert. No acute distress.Eyes: Pupils equal, round and reactive to light. Eyes normal inspection.ENT: Nose normal. Pharynx normal.Neck: Normal inspection. Neck supple.CVS: Tachycardia. Abnormal rhythm, which is irregularly irregular. Heart sounds normal. Pulsesnormal.Respiratory: No respiratory distress. Breath sounds normal. Chest nontender.Abdomen: No visible injury. Soft and nontender. Bowel sounds normal. No mass.Back: Normal inspection.Skin: Skin warm and dry. Normal skin color. No rash. Normal skin turgor.Extremities: Extremities exhibit normal ROM. No lower extremity edema.Neuro: Oriented X 3. No motor deficit. No sensory deficit.LABS, X-RAYS, AND EKGEKG: EKG time: 19:50 01/23/2021. No acute ischemia. Rate: 130. Normal QRS complex. LBBB.Normal axis. Normal ST and T waves and QT. The study has been interpreted contemporaneously byme. Interpretation time: 20:00 01/23/2021.Laboratory Tests: COVID-19 CAH: (SHELBY: 01/23/2021 20:30) ( MsgRcvd 01/23/2021 20:56) Final results Test Result Flag Units (Reference) COVID- 19 NOT DETECTED COVID-19 REENTER NOT DETECTED PROCEDURAL CONTROL VALID KIT LOT # _[id number] 01/23/21.4.JNL. KIT EXP DATE _05/21/21 01/23/21.4.JNL. NORMAL RANGE IS NOT DETECTEDThe COVID-19 assay is a rapid molecular in vitro diagnostic testutilizing an isothermal nucleic acid amplification technology for thequalitative 3 Clinical Report - Physicians/Mid Levels [facility] Emergency Department [address] [place] [address] Phone #: ext- [phone] 01/23/2021 19:49 Patient: GRAHAM CAT Sex: M : 1965 Age: 55ydetection of nucleic acid from the SARS-CoV-2 viral RNA in directnasal or nasopharyngeal swabs. Testing shouldbe performed within the first 7days of the onset of symptoms.NEGATIVE RESULTS SHOULD BE TREATED PRESUMPTIVEAND, IF INCO NSISTENT WITHCLINICAL SIGNS AND SYMPTOMS OR NECESSARY FOR PATIENT MANAGEMENT, SHOULD BETESTED WITHDIFFERENT AUTHORIZED OR CLEARED MOLECULAR TESTS. NEGATIVE RESULTSDO NOT PRECLUDE SARS-CoV-2 INFECTION AND SHOULDNOT BE USED THE SOLE BASISFOR PATIENT MANAGEMENT DECISIONS.CBC w Diff: (SHELBY: 01/23/2021 20:18) ( MsgRcvd 01/23/2021 20:30) Final results Test Result Flag Units (Reference) CBC W/AUTOMATED DIFF COMPLETE BLOOD COUNT WBC 3.9 L 10/uL (4.2 - 11.0) RBC 4.48 L 10/uL (4.50 - 6.30) HEMOGLOBIN 13.1 L g/dL (14.0 - 16.0) HEMATOCRIT 39.4 L % (41.0 - 51.0) MCV 87.9 fL (80.0 - 94.0) MCH 29.2 pg (27.0 - 34.0) MCHC 33.2 g/dL (31.0 - 36.0) RDW 12.7 % (11.5 - 14.8) PLATELETS 158 10/uL (150 - 450) MPV 10.8 H fL (7.4 - 10.4) NEUT 36.5 L % (37.0 - 80.0) LYMPH 41.5 H % (25.0 - 40.0) MONO 14.0 H % (3.0 - 8.0) EOS 6.7 % (0.0 - 7.0) BASO 1.0 % (0.0 - 2.0) %IG 0.3 H % (0.0 - 0.0) %NRBC 0.0 % (0.0 - 0.0) #NEUT 1.41 L 10/uL (2.00 - 6.90) #LYMPH 1.60 10/uL (0.60 - 3.40) #MONO 0.54 10/uL (0.00 - 0.90) #EOS 0.26 10/uL (0.00 - 0.70) #BASO 0.04 10/uL (0.00 - 0.20) #IG 0.01 10/uL (0.00 - 0.10) #NRBC 0.00 10/uL (0.00 - 0.00) MANUAL DIFF NOT INDICATED RBC MORPH NOT INDICATEDTroponin-T: (SHELBY: 01/23/2021 20:18) ( [facility] 01/23/2021 20:59) Final results Test Result Flag Units (Reference) TROPONIN T <0.01 NG/ML (0.00 - 0.10) TROPONIN T0.1 ng/ml Recommended as the clinical threshold value forTroponin T.TSH: (SHELBY: 01/23/2021 20:12) ( [facility] 01/23/2021 20:13) CanceledBMP: (SHELBY: 01/23/2021 20:18) ( [facility] 01/23/2021 20:59) Final results Test Result Flag Units (Reference) BASIC METABOLIC PANEL BASIC METABOLIC PANEL SODIUM 139 mEq/L (134 - 153) POTASSIUM 4.3 mEq/L (3.6 - 5.0) CHLORIDE 104 mEq/L (98 - 107) CO2 25 MEQ/L (22 - 30) GLUCOSE 91 MG/DL (70 - 99) BUN 25 H MG/DL (7 - 21) 4 Clinical Report - Physicians/Mid Levels [facility] Emergency Department [address] [place] [address] Phone #: ext- [phone] 01/23/2021 19:49 Patient: GRAHAM CAT Sex: M : 1965 Age: 55y CREATININE 1.6 H MG/DL (0.7 - 1.5) BUN/CREAT 16 (8 - 27) CALCIUM 8.9 MG/DL (8.4 - 10.2) ANION GAP 10.0 mmol/L (8.0 - 16.0) AGE 55 yrs AFR AMER GFR 58 mL/min NON-AA GFR 48 mL/min Male GFR Interprentation 20-49 yrs >60 mL/min Normal 50-59 yrs >56 mL/min Normal 60-69 yrs >49 mL/min Normal 70-79yrs >42 mL/min Normal 80 and above >35 mL/min Normal Female GFR Interpretation 20-39 yrs >60 mL/min Normal 40-49 yrs >58 mL/min Normal 50-59 yrs >51 mL/min Normal 60-69 yrs >45 mL/min Normal 70-79 yrs >39 mL/min Normal 80 and above >32 mL/min Normal.PROGRESS AND PROCEDURESCourse of Care: 20:34 01/23/21. Newly diagnosed atrial fibrillation, however the heart rate was noted lizeth elevated even in summer. No ischemia on EKG. Critical care performed (35 minutes). Time is exclusive of separately billable procedures. Time includes: direct patient care, patient reassessment, interpretation of data and medical consultation. Discussed case with on-call health care provider. Reviewed test results. Agreed upon treatment plan and dec ision to admit. Old ED records ordered. Disposition: Admitted to the Acute Inpatient Unit, Monitored.CLINICAL IMPRESSION New onset atrial fibrillation with uncontrolled rate.(Electronically signed by Maximo Salmeron 01/24/2021 07:06) Disposition decision: 21:20 01/23/2021.LABS, X-RAYS, AND EKGLaboratory Tests: COVID-19 CAH: (SHELBY: 01/23/2021 20:30) ( MsgRcvd 01/23/2021 20:56) Final results Test Result Flag Units (Reference) 5 Clinical Report - Physicians/Mid Levels [facility] Emergency Department [address] [place] [address] Phone #: ext- [phone] 01/23/2021 19:49 ---- Patient: GRAHAM CAT Sex: M : 1965 Age: 55y COVID-19 NOT DETECTED COVID-19 REENTER NOT DETECTED PROCEDURAL CONTROL VALID KIT LOT # _[id number] 01/23/21.JNL. KIT EXP DATE _05/21/21 01/23/21.JNL. NORMAL RANGE IS NOT DETECTEDThe COVID-19 assay is a rapidmolecular in vitro diagnostic testutilizing an isothermal nucleic acid amplification technology for thequalitativedetection of nucleic acid from the SARS-CoV-2 viral RNA in directnasal or nasopharyngeal swabs. Testing shouldbe performed within the first 7days of the onset of symptoms.NEGATIVE RESULTS SHOULD BE TREATED PRESUMPTIVEAND, IF INCONSISTENT WITHCLINICAL SIGNS AND SYMPTOMS OR NECESSARY FOR PATIENT MANAGEMENT, SHOULD BETESTED WITHDIFFERENT AUTHORIZED OR CLEARED MOLECULAR TESTS. NEGATIVE RESULTSDO NOT PRECLUDE SARS-CoV-2 INFECTION AND SHOULDNOT BE USED THE SOLE BASISFOR PATIENT MANAGEMENT DECISIONS.CBC w Diff: (SHELBY: 01/23/2021 20:18) ( MsgRcvd 01/23/2021 20:30) Final results Test Result Flag Units (Reference) CBC W/AUTOMATED DIFF COMPLETE BLOOD COUNT WBC 3.9 L 10/uL (4.2 - 11.0) RBC 4.48 L 10/uL (4.50 - 6.30) HEMOGLOBIN 13.1 L g/dL (14.0 - 16.0) HEMATOCRIT 39.4 L % (41.0 - 51.0) MCV 87.9 fL (80.0 - 94.0) MCH 29.2 pg (27.0 - 34.0) MCHC 33.2 g/dL (31.0 - 36.0) RDW 12.7 % (11.5 - 14.8) PLATELETS 158 10/uL (150 - 450) MPV 10.8 H fL (7.4 - 10.4) NEUT 36.5 L % (37.0 - 80.0) LYMPH 41.5 H % (25.0 - 40.0) MONO 14.0 H % (3.0 - 8.0) EOS 6.7 % (0.0 - 7.0) BASO 1.0 % (0.0 - 2.0) %IG 0.3 H % (0.0 - 0.0) %NRBC 0.0 % (0.0 - 0.0) #NEUT 1.41 L 10/uL (2.00 - 6.90) #LYMPH 1.60 10/uL (0.60 - 3.40) #MONO 0.54 10/uL (0.00 - 0.90) #EOS 0.26 10/uL (0.00 - 0.70) #BASO 0.04 10/uL (0.00 - 0.20) #IG 0.01 10/uL (0.00 - 0.10) #NRBC 0.00 10/uL (0.00 - 0.00) MANUAL DIFF NOT INDICATED RBC MORPH NOT INDICATEDTroponin-T: (SHELBY: 01/23/2021 20:18) ( MsgRcvd 01/23/2021 20:59) Final results Test Result Flag Units (Reference) TROPONIN T <0.01 NG/ML (0.00 - 0.10) TROPONIN T0.1 ng/ml Recommended as the clinical threshold value forTroponin T.TSH: (SHELBY: 01/23/2021 20:12) ( MsgRcvd 01/23/2021 20:13) CanceledBMP: (SHELBY: 01/23/2021 20:18) ( MsgRcvd 01/23/2021 20:59) Final results Test Result Flag Units (Reference) BASIC METABOLIC PANEL BASIC METABOLIC PANEL 6 Clinical Report - Physicians/Mid Levels [facility] Emergency Department [address] [place] [address] Phone #: ext- [phone] 01/23/2021 19:49 Patient: GRAHAM CAT Sex: M : 1965 Age: 55y SODIUM 139 mEq/L (134 - 153) POTASSIUM 4.3 mEq/L (3.6 - 5.0) CHLORIDE 104 mEq/L (98 - 107) CO2 25 MEQ/L (22 - 30) GLUCOSE 91 MG/DL (70 - 99) BUN 25 H MG/DL (7 - 21) CREATININE 1.6 H MG/DL (0.7 - 1.5) BUN/CREAT 16 (8 - 27) CALCIUM 8.9 MG/DL (8.4 - 10.2) ANION GAP 10.0 mmol/L (8.0 - 16.0) AGE 55 yrs AFR AMER GFR 58 mL/min NON-AA GFR 48 mL/min Male GFR Interprentation 20-49 yrs >60 mL/min Normal 50-59 yrs >56 mL/min Normal 60-69 yrs >49 mL/min Normal 70-79yrs >42 mL/min Normal 80 and above >35 mL/min Normal Female GFR Interpretation 20-39 yrs >60 mL/min Normal 40-49 yrs >58 mL/min Normal 50-59 yrs >51 mL/min Normal 60-69 yrs >45 mL/min Normal 70-79 yrs >39 mL/min Normal 80 and above >32 mL/min Normal.PROGRESS AND PROCEDURESCourse of Care: 09:35 01/24/21. Patient signed out by DR Salmeron at 7 am awaiting for admission I was told to speak with the patient as Estrella Mtz who came to admit the patient told me that the patient now does not want to stay. she came to evaluate the patient. he has been off the cardizem drip now his blood pressure went up and his heart rate went up to 120 again. he refused to stay despite advising home of the risk of signing out AMA including strokes. and permanent disability. he states that he lives by himself and he had dogs and has no one to take care of them.CLINICAL IMPRESSION New onset atrial fibrillation with uncontrolled rate. Uncontrolled hypertension. The patient should follow up with a primary care provider for blood pressure management.INSTRUCTIONS (you were advised admission as you have new onset atrial fibrillation but you decided to sign out AMA. you were advised of risk of leaving AMA including stroke physical , sexual as well as mental disability. you understand the risks of leaving AA and still decided to leave. take the Metoprolol 2 x day to control the heart rate as well as your benzepril for your BP. take the eliquis 5 mg twice a day to prevent you from developing blood lots. [facility] Kilpatrick in am.). Your Current Medications: 7 Clinical Report - Physicians/M id Levels [facility] Emergency Department [address] [place] [address] Phone #: ext- [phone] 01/23/2021 19:49 Patient: GRAHAM CAT Sex: M : 1965 Age: 55ySTOP TAKING THE FOLLOWING MEDICATIONS:Propranolol HCl Oral : Tablet 20 mg, daily.Sodium Fluoride Mouthwash Mouth/Throat.CONTINUE TAKING THE FOLLOWING MEDICATIONS:Aspirin Oral : Tablet Chewable 81 mg, daily.Benzonatate Oral.Capsaicin External.Dextran 70-Hypromellose (PF) Ophthalmic.Mirtazapine Oral : Tablet 15 mg, daily.Sertraline HCl Oral : Tablet 100 mg, daily.Sildenafil Citrate Oral : Tablet 100 mg, daily.Simvastatin Oral : Tablet 80 mg, daily.P rescription Medications:metoprolol tartrate 50 mg tablet Take 1 tablet twice a day for 30 days -- Dispense 60 tablet. Refills: 0.Substitution permitted. Note to Pharmacy - USE Rx DISCOUNT CARD: $7.44, BIN:[id number],PCN:YOHANA, Group:[id number], ID:[id number].[address] [place] [address]. .Eliquis 5 mg tablet Take 1 tablet twice a day for 30 days -- Dispense 60 tablet. Refills: 0. Substitutionpermitted. Note to Pharmacy - USE Rx DISCOUNT CARD: $503.47, BIN:[id number], PCN:YOHANA,Group:[id number], ID:[id number].[employer] [place] [address]. .Follow-up:Follow up with your healthcare provider today. Blood pressure screening was not performed during thisvisit because the patient has an active diagnosis of hypertension. The [facility] for blood pressure management.AMA warnings: Time of assessment: 09:42 01/24/2021. Oriented to person, place, and time. Givesappropriate answers and rational explanation of refusal of care. No indication for involuntary commitmentis present, signs of psychosis, auditory hallucinations, delusional thinking or suicidal ideations. No slurredspeech, visual hallucinations or homicidal ideations. Speaks coherently.Clinical Impression: the patient has the capacity to make decisions regarding the medical care offered.Relevant issues reviewed and discussed with the patient. Aware of suspected diagnosis suggested byscreening exam. The suspected diagnosis, based upon the initiated medical screening exam, is atrialfibrillation with RVR and has been discussed with the patient. Acknowledges understanding of thereasons for recommendations regarding admission to facility. The recommended medical care beingrefused is admisson and has been discussed with the patient. The risks of refusing recommended carethat were disclosed and acknowledged are , quadriplegia, paraplegia, permanent mental impairment,loss of limb, loss of sexual function and loss of current lifestyle. Discharge instructions were provided. 8 Clinical Report - Physicians/Mid Levels [facility] Emergency Department [address] [place] [address] Phone #: ext- [phone] 01/23/2021 19:49 Patient: GRAHAM CAT Sex: M : 1965 Age: 55y(Electronically signed by Vero Milian 01/24/2021 10:22) Name Value Range Interpretation Code Description Data [place] rce(s) Supporting Document(s) ID Date Data Source [id number] 01/23/2021 08:03:00 PM EDT [facility] Addenda for GRAHAM CAT VisitID: [id number] Date: 8:51CALLED [facility] [place] @ 8:50AM - THERE ARE NO BEDS AVAILABLE FORTHIS PATIENT AT THE [facility] - [place](Electronically signed by Quinn Yepez - 01/24/2021 8:51) Name Value Range Interpretation Code Description Data [place] rce(s) Supporting Document(s) ID Date Data Source [id number] 01/23/2021 08:30:00 PM EDT [facility] Name Value Range Interpretation Code Description Data [place] rce(s) Supporting Document(s) COVID19 Case rprt NOT DETECTED [facility] This lab was ordered by [facility] ORLY ROSADO and reported by [facility]. ID Date Data Source [id number] 01/23/2021 08:54:00 PM EDT [facility] NOT DETECTEDNOT DETECTED PROCE DURAL CONTROL VALID KIT LOT # _[id number] 01/23/21.JNL. KIT EXP DATE _05/21/21 01/23/21.JNL. NORMAL RANGE IS NOT DETECTEDThe COVID-19 assay is a rapid molecular in vitro diagnostic testutilizing an isothermal nucleic acid amplification technology for thequalitative detection of nucleic acid from the SARS-CoV-2 viral RNA in directnasal or nasopharyngeal swabs. Testing should be performed within the f irst 7days of the onset of symptoms.NEGATIVE RESULTS SHOULD BE TREATED PRESUMPTIVE AND, IF INCONSISTENT WITHCLINICAL SIGNS AND SYMPTOMS OR NECESSARY FOR PATIENT MANAGEMENT, SHOULD BETESTED WITH DIFFERENT AUTHORIZED OR CLEARED MOLECULAR TESTS. NEGATIVE RESULTSDO NOT PRECLUDE SARS-CoV-2 INFECTION AND SHOULD NOT BE USED THE SOLE BASISFOR PATIENT MANAGEMENT DECISIONS. Name Value Range Interpretation Code Description Data [place] rce(s) Supporting Document(s) ID Date Data Source [id number] 01/23/2021 08:59:00 PM EDT [facility] Name Value Range Interpretation Code Description Data [facility] rce(s) Supporting Document(s) BASIC METABOLIC PANEL [facility] BASIC METABOLIC PANEL Sodium [Moles/volume] in Serum or Plasma 139 mEq/L 134 - 153 [facility] Potassium [Moles/volume] in Serum or Plasma 4.3 mEq/L 3.6 - 5.0 [facility] Chloride [Moles/volume] in Serum or Plasma 104 mEq/L 98 - 107 [facility] Carbon dioxide, total [Moles/volume] in Serum or Plasma 25 MEQ/L 22 - 30 [facility] Glucose [Mass/volume] in Serum or Plasma 91 MG/DL 70 - 99 [facility] BUN 25 MG[facility] Creat[facility] [Mass/volume] in Serum or Plasma 1.6 MG/DL 0.7 - 1.5 H [facility] BUN/CREAT 16 8 - 27 [facility] Calcium [Mass/volume] in Serum or Plasma 8.9 MG/DL 8.4 - 10.2 [facility] Anion gap 3 in Serum or Plasma 10.0 mmol/L 8.0 - 16.0 [facility]GE 55 [facility] AFR AMER GFR 58 mL/min [facility] NON-AA GFR 48 mL/min [facility] isabela Male GFR Inter prentation 20-49 yrs >60 mL/min Normal 50-59 yrs >56 mL/min Normal 60-69 yrs >49 mL/min Normal 70-79yrs >42 mL/min Normal 80 and above >35 mL/min Normal Female GFR Interpretation 20-39 yrs >60 mL/min Normal 40-49 yrs >58 mL/min Normal 50-59 yrs >51 mL/min Normal 60-69 yrs >45 mL/min Normal 70-79 yrs >39 mL/min Normal 80 and above >32 mL/min Normal ID Date Data Source [id number] 01/23/2021 08:59:00 PM EDT [facility] Name Value Range Interpretation Code Description Data [place] rce(s) Supporting Document(s) TROPONIN T <0.01 NG/ML 0.00 - 0.10 [facility] TROPONIN T0.1 ng/ml Recommended as the c linical threshold value forTroponin T. ID Date Data Source [id number] 01/23/2021 08:30:00 PM T [facility] Name Value Range Interpretation Code Description Data [place] rce(s) Supporting Document(s) CBC W/AUTOMATED DIFF [facility] COMPLETE BLOOD COUNT Leukocytes [#/volume] in Blood by Automated count 3.9 10^3/uL 4.2 - 1 1.0 L [facility] Erythrocytes [#/volume] in Blood by Automated count 4.48 10^6/uL 4. 50 - 6.30 L [facility] Hemoglobin [Mass/volume] in Blood 13.1 g/dL 14.0 - 16.0 L [facility] Hematocrit [Volume Fraction] of Blood by Automated count 39.4 % 4 1.0 - 51.0 L [facility] Erythrocyte mean corpuscular volume [Entitic volume] by Auto mated count 87.9 fL 80.0 - 94.0 [facility] Erythrocyte mean corpuscular hemoglobin [Entitic mass] by Automated count 29.2 pg 27.0 - 34.0 [facility] Erythrocyte mean corpuscular hemoglobin concentration [Mass/volume] by Automated count 33.2 g/dL 31.0 - 36.0 [facility] Erythrocyte distribution width [Ratio] by Automated count 12.7 % 11.5 - 14.8 [facility] Platelets [#/volume] in Blood by Automated count 158 10^3/uL 150 - 45 0 [facility] Platelet mean volume [Entitic volume] in Blood by Automated count 10.8 fL 7.4 - 10.4 H [facility] Neutrophils/100 leukocytes in Blood by Automated count 36.5 % 37. 0 - 80.0 L [facility] Lymphocytes/100 leukocytes in Blood by Manual count 41.5 % 25.0 - 40.0 H [facility] Monocytes/100 leukocytes in Blood by Automated count 14.0 % 3.0 - 8.0 H [facility] Eosinophils/100 leukocytes in Blood by Automated count 6.7 % 0.0 - 7.0 [facility] Basophils/100 leukocytes in Blood by Automated count 1.0 % 0.0 - 2.0 [facility] %IG 0.3 % 0.0 - [facility] % 0.0 - 0.0 [facility] al Neutrophils [#/volume] in Blood by Automated count 1.41 10^3/uL 2.00 - 6.90 L [facility] Lymphocytes [#/volume] in Blood by Automated count 1.60 10^3/uL 0.60 - 3.40 [facility] Monocytes [#/volume] in Blood by Automated count 0.54 10^3/uL 0.00 - 0.90 [facility] Eosinophils [#/volume] in Blood by Automated count 0.26 10^3/uL 0.00 - 0.70 [facility] Basophils [#/volume] in Blood by Automated count 0.04 10^3/uL 0.00 - 0.20 [facility] #IG 0.01 10^3/uL 0.00 - 0.10 [facility] #NRBC 0.00 10^3/uL 0.00 - 0.00 [facility] MANUAL DIFF NOT INDICATED [facility] RBC MORPH NOT INDICATED [facility] spital ID Date Data Source [id number] 01/23/2021 10:28:00 AM EDT [facility] [address] [place] [address] PHONE: [phone] FAX: [phone] Name .................. : EMORY Jones Acct Number.................. : [id number] ROOM. ................. : [address] Number ................... : [id number] Stay type ............. : E/R Discharge Date......... ... : Admit Date ......... : 01/22/21 Admit Phys .................... : LORAINE GRIFFIN Date of ....... : 1965 Family Phys ................... : [facility] Phone .................. : [phone] Age ................................ : 55 Film# .................. .:[id number] Sex ................................. : M Unsigned transcriptions are preliminary reports and do not represent a medical or legal document CHEST PORTABLE [id number] COMPLETE:01/22/21 18:39 [id number] Reas on(s): SOB, new onset A. Fib. PORTABLE CHEST SINGLE VIEW OBTAINED AT 6:57 PM HISTORY: Shortness of breath, new onset atrial fibrillation COMPARISON: None. FINDINGS: Mediastinal and hilar structures are normal. Cardiac silhouette is unremarkable. Lungs are clear. No pulmonary edema. No pleural effusions or pneumothorax. IMPRESSION: No acute disease. Electronically Reviewed and Signed By Khai Sequeira MD , 01/23/21 10:28, SHERLEY Transcribe Initials: RUTH , Transcribe Date: 01/22/21 20:49, Dictation Date: Copy for: EMERGENCY DEPT via modem Copy for: 710 MED REC DISCHARGED Page 1 of 1 Name Value Range Interpretation Code Description Data [place] rce(s) Supporting Document(s) ID Date Data Source [id number] 01/22/2021 06:23:00 PM EDT [facility] 1 OrderSheet [facility] Emergency Department [address] [place] [address] Phone #: ext- [phone] 01/22/2021 18:09 Patient: GRAHAM CAT Sex: M : 1965 Age: 55yWEIGHT:81.6 kg HEIGHT:68 inches BMI:27.4ALLERGIES: No Known Drug AllergyCHIEF COMPLAINT: palpitations, fast heart rateDIAGNOSIS: Atrial fibrillation, Hypertensive disorderLAB ORDERSOrder Description Priority Entered [facility] 18:39 01/22/2021 19:06 Natali Colón Riccardo R.N. M.D.;CMP STAT 18:39 01/22/2021 19:06 Natali Colón Riccardo R.N. M.D.;Lipase STAT 18:39 01/22/2021 19:06 Natali Colón Riccardo R.N. M.D.;Troponin-T STAT 18:39 01/22/2021 19:06 Natali Colón Riccardo R.N. M.D.;BNP STAT 18:39 01/22/2021 19:06 Natali Colón, Khurram R.N. MJerardoDJerardo;TSH STAT 18:39 01/22/2021 19:06 Natali Colón Riccardo R.N. Rajani;DIAGNOSTIC STUDY ORDERSOrder Description Priority Entered Acknowledged InitialedChest Portable 1 STAT 18:39 01/22/2021 18:43 [place] Loraine Khurram unishear operator, Raphael COX(Oxygen?(No)) MHolly; Tech1 Reason for Study: SOB, new onset A. Fib.MEDICATION/IV/DRIP/FLUID ORDERSOrder Description Priority Entered Acknowledged InitialedAspirin PO 18:39 01/22/2021 19:03 Mateusz Colón 81 mg Turrin, Khurram R.N.162 mg M.D.; 2 OrderSheet [facility] Emergency Department [address] [place] [address] Phone #: ext- [phone] 01/22/2021 18:09 Patient: GRAHAM CAT Sex: M : 1965 Age: 55yNS IV : 125 mL/hr 18:40 01/22/2021 18:59 Natali Colón, Khurram R.N. MHolly;Cardizem IVP 15 18:40 01/22/2021 18:59 Natali Colónmg Turrin, Khurram R.N. M.D.;Cardizem Drip IV : 18:40 01/22/2021 19:04 Natali Colón10 mg/hr (Add 125 Turrin, Khurram R.N.mg (25 mL) to 100 M.D.;mL NS to get 125mg/125 mL (1mg/mL))NS IV 500 mL 20:19 01/22/2021 20:24 Katy Colóns: : Bolus 500 Turrin, Khurram R.N.mL (X1) MHolly;GENERAL ORDERSOrder Description Priority Entered Acknowledged InitialedBlood Pressure 18:39 01/22/2021 18:41 Leonard Colónitor Khurram Baron.NJerardo MHolly;[employer] Department Head 18:39 01/22/2021 18:41 Natali Colón(continuous) Khurram Baron R.N. MHolly;EKG 18:39 01/22/2021 18:41 Natali Colón Riccardo R.N. MJerardoD.;NPO 18:39 01/22/2021 18:41 Natali Colón Riccardo R.N. M.D.;Obtain Old EKG 18:39 01/22/2021 19:05 Natali Colón Riccardo R.N. M.D.;Obtain Old Records 18:39 01/22/2021 19:05 Natali Colón Riccardo R.N. M.DJerardo;Oxygen titrate to 18:39 01/22/2021 18:41 Natali Colón92% Khurram Baron R.N. MJerardoDJerardo;Pulse oximeter 18:39 01/22/2021 18:41 Natali Colón(Continuous) Khurram BaronNJerardo MJerardoDJerardo;Saline Lock 18:39 01/22/2021 18:41 Natali Colón 3 OrderSheet [facility] Emergency Department [address] [place] [address] Phone #: ext- [phone] 01/22/2021 18:09 Patient: GRAHAM CAT Sex: M : 1965 Age: 55y Khurram Baron R.N., M.D.;Vitals 18:39 01/22/2021 18:41 Natali Colón Riccardo R.NJerardo M.D.;[Electronically signed by Natali Colón R.N. (21:35 01/22/2021)][Electronically signed by Khurram Baron M.D. (21:39 092 12/2020)][Electronically locked by Natali Colón R.N. (21:35 01/22/2021)] Name Value Range Interpretation Code Description Data [place] rce(s) Supporting Document(s) ID Date Data Source [id number] 01/22/2021 06:23:00 PM EDT [facility] 1 Medication Reconciliation Report [facility] Emergency Department [address] [place] [address] Phone #: ext- [phone] 01/22/2021 18:09 Patient: GRAHAM CAT Sex: M : 1965 Age: 55yWeight: 81.6 kgHeight/Length: 68 in.BMI: 27.4ALLERGIES: No Known Drug AllergyThe patient's Home Medications are listed below:CONTINUE TAKING THE FOLLOWING MEDICATIONS: Aspirin Oral (81 mg), daily Benzonatate Oral Capsaicin External Dextran 70-Hypromellose (PF) Ophthalmic Mirtazapi ne Oral (15 mg), daily Propranolol HCl Oral (20 mg), daily Sertraline HCl Oral (100 mg), daily Sildenafil Citrate Oral (100 mg), daily Simvastatin Oral (80 mg), daily Sodium Fluoride Mouthwash Mouth/ThroatThe source(s) of the original Home Medication information:Not obtained.The following Medications were given to the patient in the Emergency Department:NS [IV] IV Fluids bolus 0, then 125 mL/hr, administered: 18:59 01/22/2021ardizem [IVP] IVP 15 mg, administered: 18:59 01/22/2021 2 Medication Reconciliation Report [facility] Emergency Department [address] [place] [address] Phone #: ext [phone] 01/22/2021 18:09 Patient: GRAHAM CAT Sex: M : 1965 Age: 55yASPIRIN CHEWABLE 81 MG [PO] PO 162 mg, administered: 19:03 01/22/2021ardizem [IV Drip] Drip IV bolus 0, then 10 mg 10 mg/hr, administered: 19:04 01/22/2021NS [IV] IV Fluids bolus 500 mL over 30 minute(s), administered: 20:24 01/22/2021The following Medications were prescribed to the patient:None. Name Value Range Interpretation Code Description Data [place] rce(s) Supporting Document(s) ID Date Data Source [id number] 01/22/2021 06:23:00 PM EDT [facility] 1 Medication Administration Record [facility] Emergency Department [address] [place] [address] Phone #: ext- [phone] 01/22/2021 18:09 Patient: GRAHAM CAT Sex: M : 1965 Age: 55yWeight: 81.6 kgHeight/Length: 68 inBMI: 27.4ALLERGIES: No Known Drug Allergy Date/Time Medication Administered Medication OrderedGiven ASPIRIN CHEWABLE 81 MG [PO] Aspirin PO Chewable 81 mg 26118:03 01/22/2021 Dose: 162 mg Tablets PO Natali Roche, R.N.Start NS [IV] NS IV : 125 mL/hr18:59 01/22/2021 Dose: IV FluidsNatali Colón, R.N. Rate: 125 mL/hr---- Site: #1 left WOOing16:34 01/22/2021Natali Colón R.N.Given CARDIZEM [IVP] (DILTIAZEM HCL) Cardizem IVP 15 mg18:59 01/22/2021 Dose: 15 mg IVPNatali Colón R.N. Site: #1 left ACStart CARDIZEM [IV DRIP] Cardizem Drip IV : 10 mg/hr (Add19:04 01/22/2021 Dose: 10 mg Drip IV 125 mg (25 mL) to 100 mL NS toWilNatali polo R.N. Rate: 10 mg/hr get 125 mg/125 mL (1 mg/mL))---- Dispensed: 125 mL bagStop Site: #2 right :34 01/22/2021Natali Colón R.N.Start NS [IV] NS IV 500 m L Bolus: : Bolus 44324:24 01/22/2021 Dose: IV Fluids mL (X1)Natali Colón R.N. Bolus: 500 mL over 30 minute(s)---- Site: #1 left MYJdob34:55 01/22/2021Natali Colón R.N. Name Value Range Interpretation Code Description Data [place] rce(s) Supporting Document(s) ID Date Data Source [id number] 01/22/2021 06:23:00 PM EDT [facility] 1 General Instructions [facility] Emergency Department [address] [place] [address] Phone #: ext- [phone] 01/22/2021 18:09 Patient: GRAHAM CAT Sex: M : 1965 Age: 55yNew onset atrial fibrillation with uncontrolled rate.Uncontrolled essential hypertension.INSTRUCTIONSAvoid stimulants (such as cigarettes, coffee, cold medicines, sinus medicines, street drugs). Follow a lowsalt diet and low cholesterol diet. Do not smoke. No alcohol.(PLEASE RETURN TO [facility], SOON YOUR PET SITUATION AT HOME IS RESOLVED).Warnings: GENERAL WARNINGS: Return or contact your physician immediately if your conditionworsens or changes unexpect edly, if not improving as expected, or if other problems arise.SPECIFICALLY, return if you develop chest, neck, jaw, shoulder, arm, or back pain, difficulty breathing, afluttering sensation in your chest, lightheadedness, fainting, excessive fatigue, or sudden sweating.Your Current Medications: Your current home medications have been reviewed.CONTINUE TAKING THE FOLLOWING MEDICATIONS:Aspirin Oral : Tablet Chewable 81 mg, daily.Benzonatate Oral.Capsaicin External.Dextran 70-Hypromellose (PF) Ophthalmic.Mirtazapine Oral : Tablet 15 mg, daily.Propranolol HCl Oral : Tablet 20 mg, daily.Sertraline HCl Oral : Tablet 100 mg, daily.Sildenafil Citrate Oral : Tablet 100 mg, daily.Simvastatin Oral : Tablet 80 mg, daily.Sodium Fluoride Mouthwash Mouth/Throat.Follow-up:Return to the emergency department tomorrow as needed.AMA warnings: Time of assessment: 20:50 01/22/2021. Oriented to person, place, and time. Givesappropriate answers and rational explanation of refusal of care. No indication for involuntary commitmentis present, signs of psychosis, auditory hallucinations, delusional thinking or suicidal ideations. No slurredspeech, tangential thinking, visual hallucinations or homicidal ideations. Speaks co herently. Abstractthinking intact.Clinical Impression: the patient has the capacity to make decisions regarding the medical care offered.Relevant issues reviewed and discussed with the patient. Acknowledges understanding of the reasons forrecommendations regarding medical treatment and admission to facility. The recommended medical care 2 General Instructions [facility] Emergency Department [address] [place] [address] Phone #: ext- [phone] 01/22/2021 18:09 Patient: GRAHAM CAT Sex: M : 1965 Age: 55ybeing refused is admission to hospital, cardiology care, cardioversion, etc. and has been discussed withthe patient. The risks of refusing recommended care that were disclosed and acknowledged are ,quadriplegia, paraplegia, permanent mental impairment and loss of current lifestyle. Dischargeinstructions were provided to the patient.REFUSAL OF CARE STATEMENT (patient to review and sign in discharge instructions):I have read this paragraph. I understand that a doctor at this hospital wants to give me certain medicalcare. The doctor explain ed that care to me, and I understand what that care is. The doctor also explainedto me what could happen to me if I leave here without having that care, and I understand what he said. ADDITIONAL INFORMATIONAbout ArrhythmiasElectrical impulses cause the normal heart to beat 60 to 100 times a minute while at rest. Theseimpulses come from a natural pacemaker called the sinus node. It is, inside the right upper heartchamber. Electrical impulses travel throughout the upper heart chambers (the atria) before reachingthe bottom muscle chambers ((the ventricles) through an soehila ctrical connection called the AV node.Each impulse causes the heart muscle to contract. This causes the blood to flow through the heartand out to the tissues and organs of your body. 3 General Instructions [facility] Emergency Department [address] [place] [address] Phone #: ext- [phone] 01/22/2021 18:09 Patient: GRAHAM CAT Sex: M : 1965 Age: 55yAn arrhythmia is a change from the normal speed or pattern of these electrical impulses. This cancause the heart to beat too fast (tachycardia), too slow (bradycardia), or in an unsteady pattern(irregular rhythm).Symptoms of arrhythmiasDifferent people experience arrhythmias differently. And different arrhythmias can cause differentsymptoms. Sometimes you may not have symptoms, but just notice a change in your pulse.Symptoms can include: Fluttering feeling in the chest Shortness of breath Chest pain or pressure Neck fullness Lightheadedness or dizziness Fainting or almost fainting Palpitations. This is the sense that your heart is fluttering or beating fast or hard or irregularly. Tiredness, fatigue, or weakness Cardiac arrest, and , in serious arrhythmiasCauses of arrhythmiasArrhythmias are most often caused by heart disease, such as: Coronary artery disease ("blocked arteries") Heart valve disease Enlarged heart High blood pressure Heart failureOther causes of arrhythmia include: Certain medicines such as asthma inhalers and decongestants Some herbal supplements Cardiac stimulant drugs such as cocaine, amphetamine, and diet pills, and certain decongestant cold medicines, caffeine, and nicotine 4 General Instructions [facility] Emergency Department [address] [place] [address] Phone #: ext- [phone] 01/22/2021 18:09 Patient: GRAHAM CAT Sex: M : 1965 Age: 55y Heavy use of alcohol Anxiety and panic disorder Thyroid disease Anemia Diabetes Sleep apnea Obesity Congenital heart disease Cardiac genetic diseases Electrolyte imbalance. Electrolytes are substances that help regulate normal heartbeat., High or low levels of certain electrolytes such as potassium or magnesium may affect the heartbeat and contribute to arrhythmia.Arrhythmias can often be prevented. The cause and type of arrhythmia determines the besttreatment. Sometimes your doctor may want to m onitor your heart rate over a 24-hour period orlonger. This can help find the cause of your arrhythmia and find the best treatment. This can be donewith a Holter monitor. This is a portable electrocardiogram (ECG) recording device attached by wiresto your chest. Or you may get an event monitor, which you can place over the skin in front of yourheart to record heart rhythms. You can carry this with you as you go about your routine activitiesduring the monitoring period. Implantable loop recorders may also be used to monitor the heartrhythm for up to 3 years. This miniature device is placed underneath the skin over the heart.Home careThese guidelines will help you care for yourself at home: Stay away from cardiac stimulants such as cocaine, amphetamine, diet pills, certain decongestant cold medicines, caffeine, and nicotine. If you smoke, stop smoking. Contact your doctor or a local stop-smoking program for help. Tell your doctor about any prescription, lcqn-nlz-dmnesan, or herbal medicines you take. These may be affecting your heart rhythm.Follow-up careFollow up with your healthcare provider, or as advised. If a Holter monitor has been recommended,contact the tavern operator you have been referred to as soon as you can slate picker the device. Other 5 General Instructions [facility] Emergency Department [address] [place] [address] Phone #: ext- [phone] 01/22/2021 18:09 Patient: GRAHAM CAT Sex: M : 1965 Age: 55youtpatient tests may also be arranged for you at that time.Call 911This is the fastest and safest way to get to the emergency department. The paramedics can also starttreatment on the way to the hospital, if needed.Don't wait until your symptoms are severe to call 911. Other reasons to call 911 besides chest paininclude: Chest pain radiating to the shoulder, arm, neck, or back. Shortness of breath Feeling lightheaded, faint, or dizzy Unexplained fainting Rapid heart beat Slower than usual heart rate compared to your normal Very irregular heartbeat Chest pain (angina) with weakness, dizziness, heavy sweating, nausea, or vomiting Extreme drowsiness, or confusion Weakness of an arm or leg or one side of the face Trouble with speech or visionWhen to seek medical adviceRemember, things are not always like they are on TV. Sometim es it is not so obvious. You may onlyfeel weak or just "not right." If it is not clear or if you have any doubt, call for advice. Seek help for chest pain, or if something feels different from usual, even if your symptoms are mild. Don't drive yourself. Have someone else drive. If no one can drive you, call 911. If your doctor has given you medicines to take when you have symptoms, take them, but don't delay getting help while trying to find them. [id number] [employer]. [address] [place] [address]. All rights reserved. This information is not intended as asubstitute for professional medical care. Always follow your healthcare professional's instructions.Atrial Fibrillation 6 General Instructions [facility] Emergency Department [address] [place] [address] Phone #: ext- [phone] 01/22/2021 18:09 Patient: GRAHAM CAT Sex: M : 1965 Age: 55yAtrial fibrillation is a condition in which the heart beats in an irregular pattern. It is the most commonabnormal heart rhythm. It is caused by a problem in the heart's electrical pathways within the muscleof the upper chambers of the heart (atria). It can be a sign of heart disease or other health problemsthat affect the heart.Heart palpitations are a common symptom of atrial fibrillation. This is the feeling that your heart isfluttering, or beating fast, hard, or irregular. When the heart beats too fast, it doesn't pump blood verywell. This can cause other symptoms such as anxiety, fatigue, shortness of breath, chest pain,dizziness, or fainting. Atrial fibrillation may come and go. It can last from a few hours to a couple ofdays. Or it may become senior care (chronic), lasting for months at a time or even become permanent.Some symptoms of atrial fibrillation are hard to notice. They include feeling less able to exercise.Some people have no symptoms.Atrial fibrillation is more common in older adults. It may be caused by heart disease or otherconditions in the body that affect the heart. They include: Coronary artery disease (atherosclerosis) . It is sometimes called blocked arteries. High blood pressure Disease of the heart valves 7 General Instructions [facility] Emergency Department [address] [place] [address] Phone #: ext- [phone] 01/22/2021 18:09 Patient: GRAHAM CAT Sex: M : 1965 Age: 55y Enlarged heart Heart failureAtrial fibrillation can also occur without heart disease because of: Overactive thyroid (hyperthyroid) Chronic lung disease (COPD, emphysema, or bronchitis) Heavy alcohol use Heart stimulants such as cocaine, amphetamines, diet pills, certain decongestant cold medicines, caffeine, or nicotine Infection Blood clot in the lung (pulmonary embolus) Diabetes Chronic kidney disease Obesity Extreme and continued athletic conditioning Certain genetic diseasesTreating or removing these causes will help your treatment for atrial fibrillation. It will also make it lesslikely for it to come back.Atrial fibrillation can alternate back and forth with another abnormal rhythm called atrial flutter. Atrialflutter is a more regular heart rhythm. It also linked to an increased risk for stroke. Proper treatmentcan lower your risk for stroke.Home careFollow these guidelines when caring for yourself at home: Go back to your usual activities as soon as you are feeling back to normal. If you smoke, stop smoking. Contact your healthcare provider or a local stop- smoking program for help. Don't use stimulants like alcohol, cocaine, amphetamines, diet pills, certain decongestant cold medicines, caffeine, or nicotine. If your provider prescribed medicine to stop atrial fibrillation from coming back, take it exactly as directed. Some medicines must be taken every day, not just when you have symptoms. 8 General Instructions [facility] Emergency Department [address] [place] [address] Phone #: ext- [phone] 01/22/2021 18:09 [id number] Sex: M : 1965 Age: 55y This will help them work as they should. If you were prescribed a blood-thinning medicine called warfarin to lower your risk for stroke, have your blood tested regularly as advised by your provider. This will make sure you are getting the dose that is right for you. It also lowers your risk for side effects. You may have been prescribed other blood-thinning medicines that don't need regular testing.Follow-up careFollow up with your healthcare provider, or as advised.When to seek medical adviceCall your healthcare provider right away if any of these following occur: Swelling in the legs that gets worse Unexpected weight gain Bleeding easier than normal Pain, redness, or swelling in one legCall 911Calling 911 is the fastest and safest way to get the emergency department. The paramedics can alsostart treatment on the way to the hospital, if needed.Call 911 or seek medical help right away if any of the following occur: Weakness of an arm or leg or one side of the face Chest pain Shortness of breath, or feeling that you can't get enough air Feeling lightheaded, faint, or dizzy Your heartbeat is very rapid, slow, or irregular compared with your regular heartbeat Bleeding that is not easily controlled Trouble with speech or vision Extreme drowsiness, confusion, dizziness, or fainting [id number] [employer]. [address] [place] [address]. All rights reserved. This information is not intended as asubstitute for professional medical care. Always follow your healthcare professional's instructions. 9 General Instructions [facility] Emergency Department [address] [place] [address] Phone #: ext- [phone] 01/22/2021 18:09 Patient: GRAHAM CAT Sex: M : 1965 Age: 55yEstablished High Blood PressureHigh blood pressure (hypertension) is a long- term (chronic) disease. Often healthcare providers don'tknow what causes it. But it can be caused by certain health conditions and medicines.If you have high blood pressure, you may not have any symptoms. If you do have symptoms, theymay include: Headache Dizziness Changes in your vision Chest pain Shortness of breathBut even without symptoms, high blood pressure that's not treated raises your risk for heart attack,heart failure, kidney disease, and str wolf. High blood pressure is a serious health risk and shouldn't beignored.Blood pressure measurements are given as 2 numbers. Systolic blood pressure is the upper number.This is the pressure when the heart contracts. Diastolic blood pressure is the lower number. This isthe pressure when the heart relaxes between beats. You will see your blood pressure readingswritten together. For example, a person with a systolic pressure of 118 and a diastolic pressure of 78will have 118/78 written in the medical record.Blood pressure is classified as normal, raised (elevated) or stage 1 or stage 2 high blood pressure: Normal blood pressure. Systolic of less than 120 and diastolic of less than 80 (120/80). Elevated blood pressure. Systolic of 120 to 129 and diastolic less than 80. Stage 1 high blood pressure. Systolic is 130 to 139 or diastolic between 80 to 89. Stage 2 high blood pressure. Systolic is 140 or higher or the diastolic is 90 or higher. 10 General Instructions [facility] Emergency Department [address] [place] [address] Phone #: ext- [phone] 01/22/2021 18:09 Patient: GRAHAM CAT Sex: M : 1965 Age: 55yHome careIf you have high blood pressure, follow these home care guidelines to help lower your blood pressure.If you are taking medicines for high blood pressure, these methods may reduce or end your need formedicines in the future. Start a weight-loss program if you are overweight. Cut back on how much salt you get in your diet. Here's how to do this: o Don't eat foods that have a lot of salt. These include olives, pickles, smoked meats, and salted potato chips. o Don't add salt to your food at the table. o Use only small amounts of salt when cooking. Start an exercise program. Talk with your healthcare provider about the type of exercise program that would be best for you. It doesn't have to be hard. Even brisk walking for 20 minutes 3 times a week is a good form of exercise. Don't take medicines that stimulate the heart. This includes many mqtv-uzh-urmwqxj cold and sinus decongestant pills and sprays, as well as diet pills. Check the warnings about high blood pressure on the label. Before buying any mtss-oao-otgbamk medicines or supplements, always ask the pharmacist about the product's possible interaction with your high blood pressure and your high blood pressure medicines. Stimulants such as amphetamine or cocaine could be deadly for someone with high blood pressure. Never take these. Limit how much caffeine you get in your diet. Switch to caffeine-free products. Stop smoking. If you are a long-time smoker, this can be hard. Talk with your healthcare provider about medicines and nicotine replacement options to help you. Also join a stop-smoking program . This makes it more likely that you will quit for good. Learn how to handle stress. This is an important part of any program to lower blood pressure. Learn about relaxation methods such as meditation, yoga, or biofeedback. If your provider prescribed medicines, take them exactly as directed. Missing doses may cause your blood pressure get out of control. If you miss a dose, check with your healthcare provider or pharmacist about what to do. Think about buying an automatic blood pressure machine to check your blood pressure at home. Ask your provider for a recommendation. You can get one of these at most pharmacies. 11 General Instructions [facility] Emergency Department [address] [place] [address] Phone #: ext- [phone] 01/22/2021 18:09 Patient: GRAHAM CAT Sex: M : 1965 Age: 55yUsing a home blood pressure monitorThe [place] Heart Association advises the following guidelines for home blood pressure monitoring: Don't smoke or drink coffee for 30 minutes before taking your blood pressure. Go to the bathroom before the test. Relax for 5 minutes before taking the measurement. Sit with your back supported (don't sit on a couch or soft chair). Keep your feet on the floor uncrossed. Place your arm on a solid flat surface (such as a table) with the upper part of the arm at heart level. Place the middle of the cuff directly above the bend of the elbow. Check the monitor's instruction manual for an illustration. Take multiple readings. When you measure, take 2 to 3 readings one minute apart and record all of the results. Take your blood pressure at the same time every day, or as your healthcare provider advises. Record the date, time, and blood pressure reading. Take the record with you to your next healthcare appointment. If your blood pressure monitor has a built-in memory, just take the monitor with you to your next appointment. Call your provider if you have several high readings. Don't be frightened by one high blood pressure reading. But if you get a few high readings, check in with your healthcare provider.Follow-up careYou will need to see your healthcare provider regularly. This is to check your blood pressure and tomake changes to your medicines. Make a follow-up appointment as directed. Bring the record of yourhome blood pressure readings to the appointment.Call [id number] you have any of these: Blood pressure of 180/120 or higher Chest pain or shortness of breath Weakness of an arm or leg or one side of the face Problems speaking or seeingWhen to get medical advice 12 General Instructions [facility] Emergency Department [address] [place] [address] Phone #: ext- [phone] 01/22/2021 18:09 Patient: GRAHAM CAT Sex: M : 1965 Age: 55yCall your healthcare provider right away if any of these occur: Severe headache Throbbing or rushing sound in the ears Nosebleed Sudden severe pain in your belly (abdomen) Extreme drowsiness, confusion, or fainting Dizziness or spinning feeling (vertigo) [id number] [employer]. [address] [place] [address]. All rights reserved. This information is not intended as asubstitute for professional medical care. Always follow your healthcare professional's instructions. You have been given the following additional information: About Arrhythmias Atrial Fibrillation Hypertension, Established(Electronically signed by Khurram Baron M.D. 01/22/2021 21:39) Name Value Range Interpretation Code Description Data Enid rce(s) Supporting Document(s) ID Date Data Source [id number] 01/22/2021 06:23:00 PM EDT [facility] 1 Clinical Report - Nurses [facility] Emergency Department [address] [place] [address] Phone #: ext- [phone] 01/22/2021 18:09 Patient: GRAHAM CAT Sex: M : 1965 Age: 55yTRIAGE Arrived by private vehicle. Historian: patient. Unaccompanied. Acuity: LEVEL 3. Chief Complaint: (a-fib). Alert. No acute distress. This started today. ( Patient was [facility] for a routine check up following blood work he had done 2 weeks ago. While he was there, he had a an EKG and was told he is in atrial fibrillation and needed to be seen in the ED.). Treatment HARNESS BRUSHER: None. SEPSIS SCREEN: SIRS SCREEN NEGATIVE. SEPSIS SCREEN NEGATIVE. No suspected or confirmed signs of infection present. --18:24 01/22/21 Isaura Luciano 18:20 01/22/21. BP: 170/117. HR: 77. RR: 18. O2 saturation: 96%. Pain level now 0/10. --18:24 01/22/21 Isaura Luciano 18:27 01/22/21. HR: 132. --18:27 01/22/21 Isarua Luciano 18:32 01/22/21. Temp: 98.2 F. --18:32 01/22/21 Isaura Luciano. Weight: 81.6 kg. Height/Length: 68 inches. BMI: 27.4. --18:20 01/22/21 Isaura Luciano. Medications Benzonatate Oral. --18:29 01/22/21 Isaura Luciano Aspirin Oral (Tablet Chewable 81 mg), daily. --19:00 01/22/21 Isaura Luciano Capsaicin External. --19:00 01/22/21 Isaura Luciano Dextran 70-Hypromellose (PF) Ophthalmic. --19:01/22/21 Isaura Luciano Propranolol HCl Oral (Tablet 20 mg), daily. --19:01/22/21 Isaura Luciano Mirtazapine Oral (Tablet 15 mg), daily. --19:01/22/21 Isaura Luciano Sertr patrice HCl Oral (Tablet 100 mg), daily. --19:01/22/21 Isaura Luciano Sildenafil Citrate Oral (Tablet 100 mg), daily. --19:02 01/22/21 Isaura Luciano Simvastatin Oral (Tablet 80 mg), daily. --19:01/22/21 Isaura Luciano Sodium Fluoride Mouthwash Mouth/Throat. --19:01/22/21 Isaura Luciano The following entry was struck by Isaura Luciano, 19:00 (01/22/21) Reason - other. ANXIETY MEDICATION. --18:32 01/22/21 Isaura Luciano 2 Clinical Report - Nurses [facility] Emergency Department [address] [place] [address] Phone #: ext- [phone] 01/22/2021 18:09 Patient: GRAHAM CAT Sex: M : 1965 Age: 55yThe following entry was struck by Isaura Luciano, 19:00 (01/22/21) Reason - other."PTSD MEDICATION". --18:31 01/22/21 Isaura Luciano .AllergiesNo Known Drug Allergy. --18:26 01/22/21 Isaura Luciano.PROBLEMS:Anxiety Reaction.Hypertension.PTSD. --18:27 01/22/21 Isaura Luciano.ADDITIONAL SURGERIES:Inguinal Hernia Repair.Knee Surgery. --18:27 01/22/21 Isaura Luciano.HistorySOCIAL HX: Never smoker. No alcohol use or drug use. The patient was offered HIV testing butdeclined. Patient education was provided. The patient was offered hepatitis C testing but declined. Patienteducation was provided. The patient has not traveled outside the [place]Infectious disease exposure: No infectious disease exposure. The patient was not exposed to Coronavirus.Patient is not a known carrier of tuberculosis, hepatitis, HIV, MRSA or VRE. Patient is not a known carrierof CRE.SELF HARM ASSESSMENT: Self harm assessment was performed. The patient answered "no" to thequestion(s) "Have you recently felt down, depressed, or hopeless?", "Do you have thoughts of harming orkilling yourself?", "Do you have a plan for harming or killing yourself?" and "Have you recently had thoughtsabout harming or killing others?".ABUSE ASSESSMENT: Abuse assessment. The patient had positive responses to the question(s) "Do youfeel safe in your home?" and "Are you afraid to go home?". Abuse denied. No suspicion of abuse. Noreport of abuse.NUTRITIONAL RISK ASSESSMENT: The nutritional risk assessment revealed no deficiencies.FUNCTIONAL ASSESSMENT: Functional assessment: no impairments noted.LEARNING NEEDS ASSESSMENT: The learning needs a ssessment revealed no barriers.FALL RISK ASSESSMENT: Fall risk assessment completed. No risk factors identified.SKIN INTEGRITY ASSESSMENT: Skin integrity risk assessment completed. No skin integrity riskidentified. --18:24 01/22/21 Isaura Luciano.Interventions 3 Clinical Report - Nurses [facility] Emergency Department [address] [place] [address] Phone #: ext- [phone] 01/22/2021 18:09 Patient: GRAHAM CAT Sex: M : 1965 Age: [age] Identification band on patient. --18:01/22/21 Isaura Luciano.PHYSICAL ASSESSMENT 18:30 01/22/21. Ambulatory to room. GENERAL / NEURO / PSYCH: Alert. Oriented X 4. Appears in no acute distress. HEENT: Mucous membranes are pink. RESPIRATORY: Respirations not labored. Chest nontender. Breath sounds within normal limits. CVS: Heart rhythm abnormal. Cardiac rhythm: atrial fibrillation with rapid ventricular response. Heart sounds within normal limits. Pulses within normal limits. Capillary refill less than 2 seconds. GI / : Abdomen soft and nontender. EXTREMITIES: No lower extremity edema. SKIN: Skin is warm and dry. Normal skin turgor. Skin is non-tender. --21:01/22/21 Natali Colón R.N.NURSING PROGRESS NOTES Monitoring of patient in place. Patient gowned. Reassurance given. Two patient identifiers checked. Call light placed in reach. Side rails up x 2. Bed placed in lowest position. Brakes of bed on. Patient ready for evaluation. --18:01/22/21 Isaura Luciano EKG was performed by a ghazal and shown to the ED physician. --18:25 01/22/21 Isaura Luciano 18:33 01/22/2021 Site #1 started via IV in the left antecubital space with an 20g angiocath, with aseptic technique and good blood return; one attempt. Saline lock flushed with 10 mL saline. --18:33 01/22/21 Natali Colón R.N. monitoring tech, NIBP monitor and pulse oximeter placed on patient; registered nurse cardiac telemetry- Lead II; monitor alarms on. --18:33 01/22/21 Natali Colón R.N. 18:59 01/22/2021 Started IV Fluids NS; at 125 mL/hr via site #1 via IV pump. Allergies verified and confirmed 5 rights. IV patency established. IV site checked: no pain, redness, or swelling. IV flushed thoroughly pre- and post-medication administration. Information reviewed with patient including reason for taking this medication. Verbalizes understanding. --18:59 01/22/21 Natali Colón R.N. 18:59 01/22/2021 Cardizem (dilTIAZem HCl) IVP 15 mg given over 2 minute(s) via site #1. Allergies verified and confirmed 5 rights. IV patency established. IV site checked: no pain, redness, or swelling. IV flushed thoroughly pre- and post-medication administration. IVP given by RN. Information reviewed with patient including reason for taking this medication. Verbalizes understanding. --18:59 01/22/21 Natali Colón R.N. 19:00 01/22/2021 Site #2 started via IV in the right forearm with an 20g angiocath, with aseptic technique and good blood return; one attempt. Blood drawn: rainbow set. Labeled in the presence of the patient and sent to the lab. Saline lock flushed with 10 mL saline. --19:04 01/22/21 Natali Colón R.N. 19:03 01/22/2021 ASPIRIN CHEWABLE 81 MG PO Tablets 162 mg given. Allergies verified and confirmed 5 rights. Information reviewed with patient including reason for taking this medication. Verbalizes 4 Clinical Report - Nurses [facility] Emergency Department [address] [place] [address] Phone #: ext- [phone] 01/22/2021 18:09 Patient: GRAHAM CAT Sex: M : 1965 Age: 55y understanding. --19:03 01/22/21 Natali Colón R.N. 19:04 01/22/2021 Started 10 mg of Cardizem Drip IV in bag #1 125 mL; at 10 mg/hr via site #2. via IV pump. Allergies verified and confirmed 5 rights. IV patency established. IV site checked: no pain, redness, or swelling. IV flushed thoroughly pre- and post-medication administration. Information reviewed with patient including reason for taking this medication, signs of allergic reaction and precautions. Verbalizes understanding. --19:04 01/22/21 Natali Colón R.N. 20:24 01/22/2021 Started IV Fluids NS; bolus of 500 mL over 30 minute(s) via site #1 via IV pump. Allergies verified and confirmed 5 rights. IV patency established. IV site checked: no pain, redness, or swelling. IV flushed thoroughly pre- and post-medication administration. Information reviewed with patient including reason for taking this medication. Verbalizes understanding. --20:24 01/22/21 Natali Colón R.N. 20:49 01/22/21. 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 --20:49 01/22/21 Natali Colón R.N. 20:55 01/22/2021 IV Fluids NS via IV site #1 Discontinued. Total amount infused: 500 mL (fluid bolus complete. NS changed back to 124 ml/hr). --20:55 01/22/21 Natali Colón R.N. 21:11 01/22/21. ( Patient states he is unable to find arrangements for his dog and wishes to leave AMA. Dr Baron notified.). --21:11 01/22/21 Natali Colón R.N. 21:34 01/22/2021 IV Fluids NS via IV site #1 Discontinued. Total amount infused: 700 mL. IV patency established. IV site checked: no pain, redness, or swelling. IV flushed thoroughly. --21:34 01/22/21 Natali Colón R.N. 21:34 01/22/2021 Cardizem Drip IV via IV site #2 Discontinued: bag #1 STOPPED. Total amount infused: 25 mL. --21:35 01/22/21 Natali Colón R.N.DISPOSITION / DISCHARGE 21:33 01/22/2021 Site #2 removed. Catheter intact. Pressure dressing applied. --21:33 01/22/21 Natali Colón R.N. 21:33 01/22/2021 Site #1 removed. Catheter intact. Pressure dressing applied. --21:01/22/21 Natali Colón R.N. [place] Coma Scale: 15- eyes open- spontaneous (4); best verbal response- oriented (5); best motor response- obeys commands (6). The patient left the Emergency Department against medical advice; patient was unaccompanied. The patient appears to be alert, oriented x4, coherent and in no acute distress. He notified staff prior to leaving the department and stated is leaving due to personal reasons (Needs to arrange care for pets before admission). Notified the ED physician of patient departure. Prior to leaving, he was advised to stay for completion of treatment and return if needed. He was informed of the risks of leaving and verbalized understanding of these risks. Patient signed form prior to leaving. He left the Emergency Department ambulatory and via private vehicle. ( Patient states he is going to go 5 Clinical Report - Nurses [facility] Emergency Department [address] [place] [address] Phone #: ext- [phone] 01/22/2021 18:09 Patient: GRAHAM CAT Sex: M : 1965 Age: 55y home to arrange care for his pets. States he does not have family or friends in the area to watch his pets and he cannot leave them unattended without care for the duration of an admission. Pt states he will return to ER once he arranges care. Pt verbalizes understanding of risk of leaving against medical advice.). --21:33 01/22/21 Natali Colón R.N. 21:30 01/22/21. BP: 153/106. HR: 107. RR: 18. O2 saturation: 97%. Temp: 97.9 F. Pain level now 0/10. --21:33 01/22/21 Natali Colón R.N.Locked/Released at 01/22/2021 21:35 by Naatli Colón R.N. Name Value Range Interpretation Code Description Data Enid rce(s) Supporting Document(s) ID Date Data Source [id number] 01/22/2021 06:23:00 PM EDT [facility] 1 Clinical Report - Physicians/Mid Levels [facility] Emergency Department [address] [place] [address] Phone #: ext- [phone] 01/22/2021 18:09 Patient: GRAHAM CAT Sex: M : 1965 Age: 55y Time Seen: 18:19 01/22/2021; initial patient contact. Arrived- By private vehicle. Historian- patient. Disposition decision: 21:14 01/22/2021.HISTORY OF PRESENT ILLNESS Chief Complaint: PALPITATIONS. FAST HEART RATE. This started 1 months ago and is still present. No history of caffeine use prior to onset or decongestants use prior to onset. It was gradual in onset and has been constant. It is described as a fast heart beat. Modifying factors- worsened by walking and exertion. Relieved by rest. No chest pain or discomfort, sweating episodes, fainting episodes or dizziness. No tingling or muscle spasms. He has had mild difficulty breathing on exertion. ( pt has been more SOB when mowing the lawn or doing other efforts in last month; pt feels slight palpitations but not too bad; pt denies CP; pt is and [facility] and they noticed he's in A. Fib., 1st time in his life so told to come to ER). Similar symptoms previously. None. Recent medical care: The patient was seen recently in a clinic.REVIEW OF SYSTEMSNo fever, chills, cough, orthopnea or calf pain. No enlarged lymph nodes, headache, sore throat, blurredvision or nausea. No abdominal pain, black stools, difficulty with urination, skin rash or depression. Notrouble sleeping, vomiting, diarrhea or bloody stools. The patient has not had a poor appetite. All othersystems reviewed and are negative.PAST HISTORYSee nurses notes. Problems: Hypercholesterolemia. Anxiety Reaction. Hypertension. PTSD. Additional Surgeries: Inguinal Hernia Repair. Knee Surgery. Medications: ANXIETY MEDICATION. "PTSD MEDICATION". Benzonatate Oral. Allergies: 2 Clinical Report - Physicians/Mid Levels [facility] Emergency Department [address] [place] [address] Phone #: ext- [phone] 01/22/2021 18:09 Patient: GRAHAM CAT Sex: M : 1965 Age: 55y No Known Drug Allergy.SOCIAL HISTORYNever smoker. No alcohol use or drug use. No recent travel.ADDITIONAL NOTESThe nursing notes have been reviewed with agreement regarding the chief complaint, HPI, ROS, PMH andpatient medications and allergies.PHYSICAL EXAMVital Signs: 01/22/2021 18:32 Temp: 98.2 F.01/22/2021 18:27 HR: 132.01/22/2021 18:20 BP: 170/117. MAP: 134. HR: 77. RR: 18. O2 saturation: 96%. Have been reviewed.Hypertensive. Oxygen saturation normal.Appearance: Alert. Oriented X3. No acute distress.Eyes: Pupils equal, round and reactive to light. Eyes normal inspection.ENT: Nose normal. Pharynx normal.Neck: Normal inspection. Neck supple.CVS: Tachycardia. Abnormal rhythm, which is irregularly irregular. Heart sounds normal. Pulsesnormal.Respiratory: No respiratory distress. Mildly decreased air movement in the bases bilaterally. Painlessinspiration. Chest nontender.Abdomen: Soft and nontender. Bowel sounds normal. No organomegaly. No mass. Femoral pulsesequal.Back: Normal external inspection.Skin: Skin warm and dry. Normal skin color. No rash. Normal skin turgor.Extremities: Extremities exhibit normal ROM. No lower extremity edema.Neuro: Oriented X 3. No motor deficit. No sensory deficit.LABS, X-RAYS, AND EKGEKG: Atrial fibrillation (151/min). Incomplete RBBB. Normal ST and T waves. Prior EKG unavailable.The study has been interpreted contemporaneously by me. The EKG appears to be a good tracing.Interpretation time: 18:23 01/22/2021.Chest X-ray: No acute disease. Views: AP (portable). Technique: good. The X-rays were interpretedby the radiologist. Interpretation time: 19:00 01/22/2021.Laboratory Tests: Laboratory tests have been ordered, with results reviewed and considered in themedical decision making process. CBC w Diff: (SHELBY: 01/22/2021 18:45) ( MsgRcvd 01/22/2021 19:03) Final results Test Result Flag Units (Reference) CBC W/AUTOMATED DIFF COMPLETE BLOOD COUNT WBC 3.9 L 10/uL (4.2 - 11.0) RBC 4.72 10/uL (4.50 - 6.30) HEMOGLOBIN 13.8 L g/dL (14.0 - 16.0) HEMATOCRIT 41.5 % (41.0 - 51.0) 3 Clinical Report - Physicians/Mid Levels [facility] Emergency Department [address] [place] [address] Phone #: ext- [phone] 01/22/2021 18:09 Patient: GRAHAM CAT Sex: M : 1965 Age: 55y MCV 87.9 fL (80.0 - 94.0) MCH 29.2 pg (27.0 - 34.0) MCHC 33.3 g/dL (31.0 - 36.0) RDW 12.7 % (11.5 - 14.8) PLATELETS 174 10/uL (150 - 450) MPV 10.8 H fL (7.4 - 10.4) NEUT 37.5 % (37.0 - 80.0) LYMPH 43.8 H % (25.0 - 40.0) MONO 12.1 H % (3.0 - 8.0) EOS 5.6 % (0.0 - 7.0) BASO 1.0 % (0.0 - 2.0) %IG 0.0 % (0.0 - 0.0) %NRBC 0.0 % (0.0 - 0.0) #NEUT 1.46 L 10/uL (2.00 - 6.90) #LYMPH 1.71 10/uL (0.60 - 3.40) #MONO 0.47 10/uL (0.00 - 0.90) #EOS 0.22 10/uL (0.00 - 0.70) #BASO 0.04 10/uL (0.00 - 0.20) #IG 0.00 10/uL (0.00 - 0.10) #NRBC 0.00 10/uL (0.00 - 0.00) MANUAL DIFF NOT INDICATED RBC MORPH NOT INDICATEDCMP: (SHELBY: 01/22/2021 18:45) ( MsgRcvd 01/22/2021 19:50) Final results Test Result Flag Units (Reference) COMPREHENSIVE METABOLIC PANEL COMPREHENSIVE METABOLIC PANEL SODIUM 141 mEq/L (134 - 153) POTASSIUM 4.2 mEq/L (3.6 - 5.0) CHLORIDE 107 mEq/L (98 - 107) CO2 24 MEQ/L (22 - 30) GLUCOSE 96 MG/DL (70 - 99) BUN 30 H MG/DL (7 - 21) CREATININE 1.8 H MG/DL (0.7 - 1.5) BUN/CREAT 17 (8 - 27) TOTAL PROTEIN 7.4 G/DL (6.3 - 8.2) ALBUMIN 4.3 G/DL (3.9 - 5.0) GLOBULIN 3.1 GM/DL (2.4 - 3.2) A/G RATIO 1.4 (0.8 - 2.0) CALCIUM 9.3 MG/DL (8.4 - 10.2) TOTAL BILI <0.7 MG/DL (0.2 - 1.3) ALKALINE PHOS 47 U/L (38 - 126) SGOT/AST 17 U/L (5 - 40) SGPT/ALT 15 U/L (7 - 56) ANION GAP 10.0 mmol/L (8.0 - 16.0) AGE 55 yrs NON- AA GFR 42 mL/min AFR AMER GFR 50 mL/min Male GFR Interprentation 20-49 yrs >60 mL/min Tjjtqg95-64 yrs >56 mL/min Normal 60- 69 yrs >49 mL/min Normal 70-79yrs>42 mL/min Normal 80 and above >35 mL/min Normal Female GFRInterpretation 20-39 yrs >60 mL/min Normal 40-49 yrs >58 mL/minNormal 50-59 yrs >51 mL/min Normal 60-69 yrs >45 mL/min Yqaftb04-62 yrs >39 mL/min Normal 80 and above >32 mL/min NormalLipase: (SHELBY: 01/22/2021 18:45) ( MsgRcvd 01/22/2021 19:50) Final results Test Result Flag Units (Reference) LIPASE 58 U/L (13 - 60) 4 Clinical Report - Physicians/Mid Levels [facility] Emergency Department [address] [place] [address] Phone #: ext- [phone] 01/22/2021 1 8:09 [id number] Sex: [facility] : 1965 Age: 55y Troponin-T: (SHELBY: 01/22/2021 18:45) ( [facility] 01/22/2021 19:13) Final results Test Result Flag Units (Reference) TROPONIN T <0.01 NG/ML (0.00 - 0.10) TROPONIN T0.1 ng/ml Recommended as the clinical threshold value forTroponin T. BNP: (SHELBY: 01/22/2021 18:45) ( [facility] 01/22/2021 19:34) Final results Test Result Flag Units (Reference) BNP 1509 H PG/ML (0 - 125) TSH: (SHELBY: 01/22/2021 18:45) ( [facility] 01/22/2021 19:48) Final results Test Result Flag Units (Reference) TSH 0.96 uIU/mL (0.47 - 5.01).PROGRESS AND PROCEDURESCourse of Care: 19:12 01/22/21. rate already down in mid-90"s, still in A. Fib. 19:33 01/22/21. pulse is in the mid-80's now, pt feeling great 20:17 01/22/21. workup all in and reviewed, BUN/Creat 30/1.8, BNP 1509, troponin, TSH nml, CXR nml, rate low 90"s in A. Fib.; cardizem drip going, will give more fluids 21:11 01/22/21. pt needs admission for continued rate stabilization and cardiology care and cardioversion; the RN and I have spent over 30 minutes trying to convince him to stay but he cannot because of pets at home that need care; pt understands risks of leaving AMA, understands risks of ; pt states he will return tomorrow when he settles the pets situation; pt advised to return anytime ROQUE. Disposition: Condition: stable.CLINICAL IMPRESSION New onset atrial fibrillation with uncontrolled rate. Uncontrolled essential hypertension.INSTRUCTIONS Avoid stimulants (such as cigarettes, coffee, cold medicines, sinus medicines, street drugs). Follow a low salt diet and low cholesterol diet. Do not smoke. No alcohol. (PLEASE RETURN TO ER ROQUE, SOON YOUR PET SITUATION AT HOME IS RESOLVED). Warnings: GENERAL WARNINGS: Return or contact your physician immediately if your condition 5 Clinical Report - Physicians/Mid Levels [facility] Emergency Department [address] [place] [address] Phone #: ext- [phone] 01/22/2021 18:09 Patient: GRAHAM CAT Sex: M : 1965 Age: 55y worsens or changes unexpectedly, if not improving as expected, or if other problems arise. SPECIFICALLY, return if you develop chest, neck, jaw, shoulder, arm, or back pain, difficulty breathing, a fluttering sensation in your chest, lightheadedness, fainting, excessive fatigue, or sudden sweating. Your Current Medications: Your current home medications have been reviewed. CONTINUE TAKING THE FOLLOWING MEDICATIONS: Aspirin Oral : Tablet Chewable 81 mg, daily. Benzonatate Oral. Capsaicin External. Dextran 70- Hypromellose (PF) Ophthalmic. Mirtazapine Oral : Tablet 15 mg, daily. Propranolo l HCl Oral : Tablet 20 mg, daily. Sertraline HCl Oral : Tablet 100 mg, daily. Sildenafil Citrate Oral : Tablet 100 mg, daily. Simvastatin Oral : Tablet 80 mg, daily. Sodium Fluoride Mouthwash Mouth/Throat. Follow-up: Return to the emergency department tomorrow as needed. AMA warnings: Time of assessment: 20:50 01/22/2021. Oriented to person, place, and time. Gives appropriate answers and rational explanation of refusal of care. No indication for involuntary commitment is present, signs of psychosis, auditory hallucinations, delusional thinking or suicidal ideations. No slurred speech, tangential thinking, visual hallucinations or homicidal ideations. Speaks coherently. Abstract thinking intact. Clinical Impression: the patient has the capacity to make decisions regarding the medical care offered. Relevant issues reviewed and discussed with the patient. Acknowledges understanding of the reasons for recommendations regarding medical treatment and admission to facility. The recommended medical care being refused is admission to hospital, cardiology care, cardioversion, etc. and has been discussed with the patient. The risks of refusing recommended care that were disclosed and acknowledged are , quadriplegia, paraplegia, permanent mental impairment and loss of current lifestyle. Discharge instructions were provided to the patient. REFUSAL OF CARE STATEMENT (patient to review and sign in discharge instructions): I have read this paragraph. I understand that a doctor at this hospital wants to give me certain medical care. The doctor explained that care to me, and I understand what that care is. The doctor also explained to me what could happen to me if I leave here without having that care, and I understand what he said.(Electronically signed by Khurram Baron M.D. 01/22/2021 21:39) 6Clinical Report - Physicians/Mid Levels [facility] Emergency Department [address] [place] [address] Phone #: ext- [phone] 01/22/2021 18:09 Patient: GRAHAM CAT Sex: M : 1965 Age: 55y Name Value Range Interpretation Code Description Data Enid rce(s) Supporting Document(s) ID Date Data Source [id number] 01/22/2021 07:50:00 PM EDT [facility] Name Value Range Interpretation Code Description Data Enid rce(s) Supporting Document(s) Lipase [Enzymatic activity/volume] in Serum or Plasma 58 U/L 13 - 60 [facility] ID Date Data Source [id number] 01/22/2021 07:50:00 PM EDT [facility] Name Value Range Interpretation Code Description Data En[place] rce(s) Supporting Document(s) COMPREHENSIVE METABOLIC PANEL [facility] COMPREHENSIVE METABOLIC PANEL Sodium [Moles/volume] in Serum or Plasma 141 mEq/L 134 - 153 [facility] Potassium [Moles/volume] in Serum or Plasma 4.2 mEq/L 3.6 - 5.0 [facility] Chloride [Moles/volume] in Serum or Plasma 107 mEq/L 98 - 107 [facility] Carbon dioxide, total [Moles/volume] in Serum or Plasma 24 MEQ/L 22 - 30 [facility] Glucose [Mass/volume] in Serum or Plasma 96 MG/DL 70 - 99 [facility] BUN 30 MG/DL 7 - 21 [facility] al Creatinine [Mass/volume] in Serum or Plasma 1.8 MG/DL 0.7 - 1.5 H [facility] BUN/CREAT 17 8 - 27 [facility] Protein [Mass/volume] in Serum or Plasma 7.4 G/DL 6.3 - 8.2 [facility] Albumin [Mass/volume] in Serum or Plasma 4.3 G/DL 3.9 - 5.0 [facility] Globulin [Mass/volume] in Serum by calculation 3.1 GM/DL 2.4 - 3.2 [facility] A/G RATIO 1.4 0.8 - 2.0 [facility] Calcium [Mass/volume] in Serum or Plasma 9.3 MG/DL 8.4 - 10.2 [facility] Bilirubin.total [Mass/volume] in Serum or Plasma <0.7 MG/DL 0.2 - 1.3 [facility] Alkaline phosphatase [Enzymatic activity/volume] in Serum or Plasma 47 U/L 38 - 126 [facility] Aspartate aminotransferase [Enzymatic activity/volume] in Serum or Plasma 17 U/L 5 - 40 [facility] Alanine aminotransferase [Enzymatic activity/volume] in Seru m or Plasma 15 U/L 7 - 56 [facility] Anion gap 3 in Serum or Plasma 10.0 mmol/L 8.0 - 16.0 [facility] AGE 55 yrs [facility] NON-AA GFR 42 mL/min [facility] AMER GFR 50 mL/min [facility] Male GFR In terprentation 20-49 yrs >60 mL/min Normal 50-59 yrs >56 mL/min Normal 60-69 yrs >49 mL/min Normal 70-79yrs >42 mL/min Normal 80 and above >35 mL/min Normal Female GFR Interpretation 20-39 yrs >60 mL/min Normal 40-49 yrs >58 mL/min Normal 50-59 yrs >51 mL/min Normal 60-69 yrs >45 mL/min Normal 70-79 yrs >39 mL/min Normal 80 and above >32 mL/min Normal ID Date Data Source [id number] 01/22/2021 07:48:00 PM EDT [facility] Name Value Range Interpretation Code Description Data Enid rce(s) Supporting Document(s) Thyrotropin [Units/volume] in Serum or Plasma by Detec tion limit <= 0.05 mIU/L 0.96 uIU/mL 0.47 - 5.01 [facility] ID Date Data Source [id number] 01/22/2021 07:34:00 PM EDT [facility] Value Range Interpretation Code Description Data Enid rce(s) Supporting Document(s) BNP 1509 PG/ML 0 - 125 H [facility] ID Date Data Source [id number] 01/22/2021 07:13:00 PM EDT [facility] Value Range Interpretation Code Description Data Enid rce(s) Supporting Document(s) TROPONIN T <0.01 NG/ML 0.00 - 0.10 [facility] ospital TROPONIN T0.1 ng/ml Recommended as the c linical threshold value forTroponin T. ID Date Data Source [id number] 01/22/2021 07:03:00 PM [facility] Value Range Interpretation Code Description Data Enid rce(s) Supporting Document(s) CBC W/AUTOMATED DIFF [facility] COMPLETE BLOOD COUNT Leukocytes [#/volume] in Blood by Automated count 3.9 10^3/uL 4.2 - 1 1.0 L [facility] Erythrocytes [#/volume] in Blood by Automated count 4.72 10^6/uL 4. 50 - 6.30 [facility] Hemoglobin [Mass/volume] in Blood 13.8 g/dL 14.0 - 16.0 L [facility] Hematocrit [Volume Fraction] of Blood by Automated count 41.5 % 4 1.0 - 51.0 [facility] Erythrocyte mean corpuscular volume [Entitic volume] by Auto mated count 87.9 fL 80.0 - 94.0 [facility] Erythrocyte mean corpuscular hemoglobin [Entitic mass] by Automated count 29.2 pg 27.0 - 34.0 [facility] Erythrocyte mean corpuscular hemoglobin concentration [Mass/volume] by Automated count 33.3 g/dL 31.0 - 36.0 [facility] Erythrocyte distribution width [Ratio] by Automated count 12.7 % 11.5 - 14.8 [facility] Platelets [#/volume] in Blood by Automated count 174 10^3/uL 150 - 45 0 [facility] Platelet mean volume [Entitic volume] in Blood by Automated count 10.8 fL 7.4 - 10.4 H [facility] Neutrophils/100 leukocytes in Blood by Automated count 37.5 % 37. 0 - 80.0 [facility] Lymphocytes/100 leukocytes in Blood by Manual count 43.8 % 25.0 - 40.0 H [facility] Monocytes/100 leukocytes in Blood by Automated count 12.1 % 3.0 - 8.0 H [facility] Eosinophils/100 leukocytes in Blood by Automated count 5.6 % 0.0 - 7.0 [facility] Basophils/100 leukocytes in Blood by Automated count 1.0 % 0.0 - 2.0 [facility] %IG 0.0 % 0.0 - 0.0 [facility] %NRBC 0.0 % 0.0 - 0.0 [facility] al Neutrophils [#/volume] in Blood by Automated count 1.46 10^3/uL 2.00 - 6.90 L [facility] Lymphocytes [#/volume] in Blood by Automated count 1.71 10^3/uL 0.60 - 3.40 [facility] Monocytes [#/volume] in Blood by Automated count 0.47 10^3/uL 0.00 - 0.90 [facility] Eosinophils [#/volume] in Blood by Automated count 0.22 10^3/uL 0.00 - 0.70 [facility] Basophils [#/volume] in Blood by Automated count 0.04 10^3/uL 0.00 - 0.20 [facility] #IG 0.00 10^3/uL 0.00 - 0.10 [facility] #NRBC 0.00 10^3/uL 0.00 - 0.00 [facility] MANUAL DIFF NOT INDICATED [facility] RBC MORPH NOT INDICATED [facility] spital ID Date Data Source [id number] 05/20/2020 12:11:00 PM EST [facility] [address] [place] [address] PHONE: [phone] FAX: [phone] Name .................. : CAT GRAHAM Jones Acct Number.................. : [id number] ROOM. ................. : MR Number ................... : [id number] Stay type ............. : O/P Discharge Date......... ... : 05/16/20 Admit Date ......... : 05/16/20 Admit Phys .................... : STELLA OROPEZA Date of ....... : 1965 Family Phys ................... : NON STAFF Phone .................. : [phone] Age ................................ : 55 Film# .................. .:[id number] Sex ................................. : M Unsigned transcriptions are preliminary reports and do not represent a medical or legal document US ABD LIMITED [id number] COMPLETE:05/16/20 09:00 KNB 2623 (REASON FOR ABDOMEN: ABD PAIN R/O HERNIA LIMITED ABDOMINAL ULTRASOUND: FINDINGS: There is an umbilical hernia containing fat. No masses are seen. No fluid collections are noted. IMPRESSION: Umbilical hernia containing fat. Electronically Reviewed and Signed By Donavan Barnhart MD , 05/20/20 12:11, MRA Transcribe Initials: RUTH , Transcribe Date: 05/16/20 15:23, Dictation Date: Copy for: STELLA HENSLEY Copy for: [facility] MED REC Page 1 of 1 Name Value Range Interpretation Code Description Data Enid rce(s) Supporting Document(s) Procedure Social History No Information
--- NOTE | 2021-02-11 23:32 | HPEPDOC ---
General Date of Admission Feb 11, 2021 at 22:53 Date of Service: Feb 11, 2021 Primary Care Physician: RACQUEL BEAUCHAMP MD Chief Complaint The patient is a 55-year-old male admitted with a reason for visit of Atrial Fibrillation With Rvr. Source: Patient Exam Limitations: No limitations History of Present Illness History of present illness: Mr. Figueroa is a pleasant 55 year old male who presented to the emergency department for atrial fibrillation with RVR of two weeks duration. On 01/24/21 he presented to the [facility] for a routine appointment and was found to be in atrial fibrillation with RVR. He was advised to go to the ED and presented to the [facility] ED the evening of 01/24/21 where he left AMA and returned the following day for care. They discharged him on Metoprolol tartrate 50 BID and Eliquis 5mg BID with the plan to follow up with his PCP at the [facility]. He has been taking the metoprolol for the last two weeks but has not been taking the Eliquis because it arrived in the mail yesterday and he is hesitant to take a "blood thinner". At his follow up appt at the [facility] today he was found to still be in atrial fibrillation with RVR and was advised again to go to the ED. He chose to come to [facility] because it is closer to his home. He denies chest pain, shortness of breath, dizziness, or palpitations. In the ED he was found to be asymptomatic with atrial fibrillation and a HR in the 140's. Dr. Weiss was called and increased the patient's metoprolol to TID. He also advised giving 0.25 digoxin with three additional doses q 6 hours. Past medical history: Hypertension Depression Past surgical history: Inguinal hernia repair 1985 Left meniscus repair 2006 Social history: Patient denies using tobacco products, drinking alcohol, or using ilicit drugs Family history: Mom alive 80 with hypertension Dad age 54 from stroke Allergies: No known drug allergies Review of systems: General: Patient denies fevers, chills, recent changes in weight, fatigue, lightheadedness, or weakness HEENT: He denies changes in vision, difficulty swallowing, swollen glands Heart: he denies chest pain or palpitations Lungs: he denies shortness of breath, pain with inspiration, coughing up blood, or wheezing Abdomen: he denies abdominal pain, nausea, vomiting, constipation, or diarrhea : he denies blood in stool or urine psych: he denies feelings of depression and feels content on current dose of zoloft Physical examination: General:Mr. Figueroa is a pleasant male who is sitting comfortably in bed in no acute distress HEENT: PERRLA, EOMI, mucous membranes are moist and pink, no lymphadenopathy appreciated Cardiology: irregularly irregular rhythm, tachycardic, no murmurs were appreciated Pulmonology: lungs are clear to auscultation, no wheezes, rhonchi, or rales appreciated Abdomen: soft, bowel sounds present, no organomegatly, no suprapubic tenderness, no tenderness to deep palpation in all four quadrants. Extremities: No edema or cyanosis noted. Capillary refill is <2 Psych: patient is cooperative and alert and oriented x 4 Imaging: Chest x-ray 02/11/21: Impression: Cardiomegaly, no consolidation or effusion appreciated. Assessment: Mr. Figueroa is a 55 year old male with past medical history of hypertension and depression who presented to the ED with atrial fibrillation with RVR of two weeks duration. He is being admitted to the hospital for treatment and further workup as well as to rule out valvular causes of atrial fibrillation. Plan: Atrial fibrillation with RVR -Upon presentation to the ED, HR in the 140's -Transthoracic echocardiogram has been ordered for the morning to rule out valvular causes as well as thrombus. If the patient has valvular pathology he will need to be started on coumadin. -Will hold eliquis until results of echocardiogram, started heparin drip for anticoagulation -patient being monitored on telemetry -Patient given one dose of 0.25 digoxin in ED, he is schedule to receive three more doses q [address] Weiss -Started metoprolol tartrate 50mg TID -May need to consult Dr. Weiss in the AM pending results of Echo for outpatient instructions -[id number] score 1 point, intermediate risk of thromboembolic event -HAS-BLED score 1 point, relatively low risk of major bleeding RAVIN likely secondary to increased cardiac demand -Creatinine 1.68, BUN 21 -patient given 1L of NS in ED, will continue him on maintenance fluids at rate of 120ml/hr x 2 bags -will reassess renal status with AM labs Elevated Troponin -likely secondary to demand ischemia -Troponin 0.28 at 16:15, repeat 0/25 19:36. This is downtrending -Patient denies any chest pain at this time. Elevated NT proBNP -level is 5955 -patient denies shortness of breath, chest pain, or lower extremity edema -He does not appear fluid overloaded on physical exam -Will continue to monitor clinically as we are giving him fluids Hypertension -patient is normotensive -continue with metoprolol Depression -patient served in the for over 30 years -continue zoloft 200mg daily DVT prophylaxis -Will hold eliquis until after Echocardiogram. -Continue with heparin drip Disposition: patient is stable. We will await the results of AM echocardiogram to determine what form of anticoagulation this gentleman qualifies for. Home Medications Scheduled Apixaban (Eliquis) 5 Mg Tablet, 5 MG PO BID, (Reported) Digoxin (Digoxin) 125 Mcg Tablet, 125 MCG PO DAILY Ergocalciferol (Vitamin D2) (Vitamin D2) 50,000 Units Cap, 50,000 UNITS PO QWEEK, (Reported) Metoprolol Tartrate (Metoprolol Tartrate) 50 Mg Tablet, 50 MG PO TID Sertraline Hcl (Zoloft) 100 Mg Tablet, 200 MG PO DAILY, (Reported) Scheduled PRN Capsaicin (Capsaicin) 0.025% Cream..g., 1 DOSE TOP TID PRN for MILD PAIN (PS 1- 4), (Reported) Allergies Coded Allergies: No Known Allergies (Unverified , 02/11/21) A-FIB/CHADSVASC A-FIB History Current/History of A-Fib/PAF?: Yes Current PO Anticoag Therapy: No Vital Signs Vital Signs Date Time Temp Pulse Resp B/P (MAP) Pulse Ox O2 Delivery O2 Flow Rate FiO2 02/11/21 22:46 129 96 02/11/21 22:45 16 166/126 (139) Room Air 02/11/21 15:05 99.0 Laboratory Data Labs 24H Laboratory Tests 2 02/11/21 16:15: Immature Granulocyte % (Auto) 0.2, Neutrophils (%) (Auto) 45.5, Lymphocytes (%) (Auto) 35.6, Monocytes (%) (Auto) 16.5H, Eosinophils (%) (Auto) 1.5, Basophils (%) (Auto) 0.7, Neutrophils # (Auto) 1.9, Lymphocytes # (Auto) 1.5, Monocytes # (Auto) 0.7, Eosinophils # (Auto) 0.1, Basophils # (Auto) 0.0, Nucleated Red Blood Cells % (auto) 0.0, Anion Gap 6L, Glomerular Filtration Rate 54.8L, Calcium Level 8.7, Total Bilirubin 0.7, Direct Bilirubin 0.2, Aspartate Amino Transf (AST/SGOT) 23, Alanine Aminotransferase (ALT/SGPT) 69, Alkaline Phosphata se 46, Total Creatine Kinase 140, Creatine Kinase MB 1.0, Creatine Kinase MB Relative Index 0.71, Troponin I 0.28H, NB-Oqk-F-Type Natriuretic Peptide 5955H, Total Protein 6.6, Albumin 3.2, Albumin/Globulin Ratio 0.9, Lipase 151, Thyroid Stimulating Hormone (TSH) 1.120 02/11/21 19:36: Total Creatine Kinase 118, Creatine Kinase MB 1.4, Creatine Kinase MB Relative Index 1.19, Troponin I 0.25H 02/11/21 20:59: Coronavirus (COVID-19)(PCR) NEGATIVE, Influenza Type A (RT-PCR) NEGATIVE, Influenza Type B (RT-PCR) NEGATIVE, Respiratory Syncytial Virus (PCR) NEGATIVE CBC/BMP Laboratory Tests 02/11/21 16:15 Plan / VTE VTE Prophylaxis Ordered?: Yes GME ATTESTATION GME ATTESTATION My faculty preceptor for this patient encounter was physically present during the encounter and was fully available. All aspects of the patient interview, examination, medical decision making process, and medical care plan development were reviewed and approved by the faculty preceptor. The faculty preceptor is aware and concurs with the plan as stated in the body of this note and will attest to such by his/her cosignature. ATTENDING NOTE IMervinsef, have independently examined this patient and performed my own physical exam, as well as reviewed the documentation and edited where necessary. I have discussed in detail with the resident / student the findings and plan of treatment as documented by the resident / student and edited their note. I agree with their findings and treatment plan and have edited their documentation. I will continue to follow the patient during this hospital stay. JOEL KENNY DO Feb 11, 2021 23:32 RACQUEL BEAUCHAMP MD Feb 12, 2021 19:11
[2021-02-12] VITALS (9 sets, daily range): BP systolic 132–158; BP diastolic 82–100; O2SAT 90–97
[2021-02-12] MEDS ORDERED: MOM 30ML SUSPENSION UDC PO PRN (00:10)
[2021-02-12] MEDS ORDERED: MAALOX 30 ML SUSP *UDC PO PRN (00:10)
[2021-02-12] MEDS ORDERED: ACETAMINOPHEN TAB 650MG DOSE (2X325MG) PO PRN (00:10)
[2021-02-12 00:42] LABS: HEMATOCRIT 42.5 % (42.0-52.0); HEMOGLOBIN 13.8 g/dl (13.5-17.5); MEAN CORPUSCULAR HGB CONC 32.5 g/dl (32.0-36.5); MEAN CORPUSCULAR VOLUME 89.3 fl (80.0-96.0); PLATELET COUNT, AUTOMATED 181 10^3/uL (150-450); RED BLOOD COUNT 4.76 10^6/uL (4.30-6.10); WHITE BLOOD COUNT 4.6 10^3/uL (4.0-10.0)
[2021-02-12] MEDS ORDERED: METOPROLOL TART 50 MG TAB PO ONE (01:00)
[2021-02-12] MEDS: NS 1,000 ML IV SCH ×2 (01:00→07:24)
[2021-02-12] MEDS ORDERED: DIGOXIN INJ 0.5 MG/2 ML AMP (J1160) IV ONE ×4 (02:40→14:40)
[2021-02-12] MEDS ORDERED: SERTRALINE 100 MG TAB PO SCH (09:00)
[2021-02-12] MEDS ORDERED: DOCUSATE SODIUM 100MG CAPSULE PO SCH (09:00)
[2021-02-12] MEDS ORDERED: METOPROLOL TART 50 MG TAB PO SCH (09:00)
--- NOTE | 2021-02-12 13:33 | ECGEPIP ---
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
[2021-02-12] MEDS ORDERED: METO50TA7 PO (13:37)
[2021-02-12] MEDS ORDERED: DIGO0.123 PO (13:37)
--- NOTE | 2021-02-12 22:33 | DS.PDOC ---
Discharge Summary General Date of Admission Feb 11, 2021 at 22:53 Date of Discharge Feb 12, 2021 Discharge Summary PROCEDURES PERFORMED DURING STAY: Echocardiogram ADMITTING DIAGNOSES: 1. Atrial fibrillation with RVR 2. RAVIN 3. Hypertension 4. Depression DISCHARGE DIAGNOSES: 1. Atrial fibrillation with RVR 2. RAVIN 3. Hypertension 4. Depression COMPLICATIONS/CHIEF COMPLAINT: Atrial Fibrillation With Rvr. HISTORY OF PRESENT ILLNESS: Copied from admitting provider's H&P " Mr. Figueroa is a pleasant 55 year old male who presented to the emergency department for atrial fibrillation with RVR of two weeks duration. On 01/24/21 he presented [place] and was found to be in atrial fibrillation with RVR. He was advised to go to the ED and presented to the [facility] ED the evening of 01/24/21 where he left AMA and returned the following day for care. They discharged him on Metoprolol tartrate 50 BID and Eliquis 5mg BID with the plan to follow up with his PCP at the [place]. He has been taking the metoprolol for the last two weeks but has not been taking the Eliquis because it arrived in the mail yesterday and he is hesitant to take a "blood thinner". At his follow up appt at the [facility] today he was found to still be in atrial fibrillation with RVR and was advised again to go to the ED. He chose to come to [facility] because it is closer to his home. He denies chest pain, shortness of breath, dizziness, or palpitations. In the ED he was found to be asymptomatic with atrial fibrillation and a HR in the 140's. Dr. Weiss was called and increased the patient's metoprolol to TID. He also advised giving 0.25 digoxin with three additional doses q 6 hours. " HOSPITAL COURSE: The following morning, he was feeling well. Denies chest pain, dyspnea, lightheadedness, or abdominal pain. He was very anxious to go home and did not want to stay another night. This morning, his heart rate improved between 100s to 120s. He still had another two doses of digoxin left to go. After the last dose of digoxin, his heart rate was between 80s to 110s. I reached out to our [employer], Dr. Weiss. He was okay with patient going home with Lopressor 50mg TID and Digoxin 0.125mg qD. Otherwise, patient did have RAVIN, but this is most likely due to a.fib with RVR. Patient was given fluids, but w ith better control of the heart rate the renal function should improve. I discussed the new medication changes with the patient. Patient was interested in Cardioversion, but it is unclear how long patient was in atrial fibrillation, and patient may have clots in his heart. Recommended patient start and stay on the blood thinners and discuss with his [employer]ist when they felt it was ready for cardioversion. Patient felt ready for home and was discharged today. DISCHARGE MEDICATIONS: Please see below. ALLERGIES: Please see below. PHYSICAL EXAMINATION ON DISCHARGE: VITAL SIGNS: Please see below. GENERAL: Comfortable, in no apparent distress HEENT: Head normocephalic, atraumatic NECK: Supple CARDIOVASCULAR EXAMINATION: Irregular rhythm RESPIRATORY EXAMINATION: Lungs clear to auscultation bilaterally ABDOMINAL EXAMINATION: Soft, non-tender, normal bowel sounds EXTREMITIES: No pitting edema bilaterally SKIN: Warm and dry NEUROLOGICAL EXAMINATION: CN 3-12 grossly intact PSYCHIATRIC EXAMINATION: Normal mood and affect LABORATORY DATA: Please see below. IMAGING: Radiologist interpretation CXR Cardiomegaly. No consolidation or effusion appreciated. PROGNOSIS: Good ACTIVITY: As tolerated. DIET: As tolerated DISCHARGE PLAN: Home DISPOSITION: 01 Home, Self-Care. DISCHARGE INSTRUCTIONS: 1. Follow up with PCP within 1 week 2. Follow up with cardiology in 1 week ITEMS TO FOLLOWUP ON ON OUTPATIENT: 1. Echocardiogram results 2. Monitor renal function 3. Monitor heart rate 4. Check digoxin levels DISCHARGE CONDITION: Stable. Total time spent on discharge planning, discharge summary, and medication reconciliation: 45 minutes Vital Signs/I&Os Vital Signs Date Time Temp Pulse Resp B/P (MAP) Pulse Ox O2 Delivery O2 Flow Rate FiO2 02/12/21 12:33 98 02/12/21 12:00 97.9 18 158/88 (111) 98 02/12/21 08:00 Room Air I&O- Last 24 Hours up to 6 AM 02/12/21 06:00 Intake Total 1958 ml Output Total 900 ml Balance 1058 ml Laboratory Data Labs 24H Laboratory Tests 2 02/12/21 00:02: Nucleated Red Blood Cells % (auto) 0.0, Activated Partial Thromboplast Time 37.2 02/12/21 06:56: Activated Partial Thromboplast Time 72.5H 02/12/21 13:00: Activated Partial Thromboplast Time 67.3H CBC/BMP Laboratory Tests 02/12/21 00:02 Discharge Medications Scheduled Apixaban (Eliquis) 5 Mg Tablet, 5 MG PO BID, (Reported) Digoxin (Digoxin) 125 Mcg Tablet, 125 MCG PO DAILY Ergocalciferol (Vitamin D2) (Vitamin D2) 50,000 Units Cap, 50,000 UNITS PO QWEEK, (Reported) Metoprolol Tartrate (Metoprolol Tartrate) 50 Mg Tablet, 50 MG PO TID Sertraline Hcl (Zoloft) 100 Mg Tablet, 200 MG PO DAILY, (Reported) Scheduled PRN Capsaicin (Capsaicin) 0.025% Cream..g., 1 DOSE TOP TID PRN for MILD PAIN (PS 1- 4), (Reported) Allergies Coded Allergies: No Known Allergies (Unverified , 02/11/21) BLAIR MCGOVERN DO Feb 12, 2021 22:33
--- NOTE | 2021-02-13 18:52 | ECGEPIP ---
[facility] - ED Test Date: 2021-02-11 Pat Name: GRAHAM CAT Department: Room: [place] [address] Gender: Male [employer] Field Agent: MIRIAM HAWTHORNEB: 1965 Requested By: ALICE DAHL Order Number: [id number] Reading MD: Trice Banks Measurements Intervals Roy Rate: 128 P: CT: QRS: -13 QRSD: 100 T: 20 QT: 280 QTc: 408 Interpretive Statements Atrial fibrillation with rapid ventricular response Incomplete right bundle branch block Minimal voltage criteria for LVH, may be normal variant ( Sokolow-Parsons ) Nonspecific T wave abnormality decreased rate 15:55 Electronically Signed on 02-13-2021 18:52:34 EDT by Trice Banks
--- NOTE | 2021-02-14 10:14 | ECHO ---
ECHOCARDIOGRAM DATE OF PROCEDURE: 02/12/2021 Age: 55 Gender: Male Height: 173 cm Weight: 84 kg REFERRING PHYSICIAN: Dr. Zee REASON FOR THIS STUDY: Atrial fibrillation 2D MEASUREMENTS: IVS 1.4 cm LV 4.3 cm LVPW 1.4 cm Aorta 4.2 cm LA 4.7 cm DOPPLER MEASUREMENTS: Peak velocity across the aortic valve 1.0 m/s Peak velocity across the LVOT 0.9 m/s Maximum velocity across the tricuspid valve 2.6 m/s 2D COMMENTS: 1. Normal left ventricle size with mildly increased left ventricular wall thickness. Left ventricular systolic function is normal, estimated at 55%-65%. 2. Mildly dilated left atrium. The right atrium also appeared to be mildly enlarged. The right ventricle appeared to be mildly enlarged and in limited views. The right ventricular wall appeared to be hypokinetic. 3. 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 4. Mildly calcified aortic valve with normal leaflet excursion. Mildly calcified mitral annulus with normal-appearing mitral valve leaflet motion. Normal tricuspid valve and pulmonic valve. The proximal pulmonary artery branches were not well visualized. 5. The inferior vena cava was not visualized. DOPPLER: It detects mild aortic regurgitation, moderate to severe mitral regurgitation, and mild tricuspid regurgitation. The calculated pulmonary artery systolic pressure varies between 30-40 mmHg. Assessment of the left ventricular diastolic function was limited in view of the underlying arrhythmias.. IMPRESSION: 1. Normal global left ventricular systolic function. Assessment of the left ventricular diastolic function was limited in view of the underlying arrhythmias. 2. Aortic valve sclerosis with mild aortic regurgitation, but no aortic stenosis. 3. Mitral annulus calcification with a mildly enlarged left atrium and moderately severe mitral regurgitation. 4. Mild tricuspid regurgitation with mild pulmonary hypertension. The right heart chambers also appear to be mildly enlarged. 5. 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
== END 2021-02-12 14:52 | disposition home or self-care (01) | DRG 309 ==
LOC: M ED 15:03 → M ED INP 22:53 → M PCU 02-12 00:10
PROVIDERS: ADMIT Family Medicine; ATTEND Family Medicine
DX: I48.91 Unspecified atrial fibrillation (principal); N17.9 Acute kidney failure, unspecified; I24.8 Other forms of acute ischemic heart disease; I10 Essential (primary) hypertension; F32.A Depression, unspecified; R77.8 Other specified abnormalities of plasma proteins; Z79.01 Long term (current) use of anticoagulants; Z79.899 Other long term (current) drug therapy

== ENCOUNTER 2022-08-10 13:56 | Inpatient (IN) | payer OTHER ==
[~2022-08-10] VITALS: Ht 174 cm; Wt 79.3 kg
[~2022-08-10 13:56] MED LIST: ASPI81CH33 PO; BENA40TA84 PO; CAPS25CR TOP; DIGO0.123 PO; ELIQ5TAB PO; ERGO500029 PO; METO50TA7 PO; MIRT1TAB15 PO; PROP20TA72 PO; SERT50TA29 PO; ZOCO80TA PO; ZOLO100T PO
[2022-08-10] MEDS ORDERED: METOPROLOL TART 50 MG TAB PO ONE (17:25)
[2022-08-10 17:31] LABS: BASO # 0.1 10^3/uL (0.0-0.2); BASO % 1.1 % (0.0-1.0); EOS # 0.1 10^3/uL (0.0-0.5); EOS % 1.1 % (0.0-3.0); HEMATOCRIT 42.1 % (42.0-52.0); LYMPH # 1.5 10^3/uL (1.5-5.0); LYMPH % 33.5 % (24.0-44.0); MEAN CORPUSCULAR HEMOGLOBIN 30.3 pg (27.0-33.0); MEAN CORPUSCULAR HGB CONC 33.3 g/dl (32.0-36.5); MEAN CORPUSCULAR VOLUME 91.1 fl (80.0-96.0); MONO # 0.6 10^3/uL (0.0-0.8); MONO % 12.6 % (2.0-8.0); NEUTROPHILS # 2.3 10^3/uL (1.5-8.5); NEUTROPHILS % 51.5 % (36.0-66.0); PLATELET COUNT, AUTOMATED 200 10^3/uL (150-450); RED BLOOD COUNT 4.62 10^6/uL (4.30-6.10); WHITE BLOOD COUNT 4.5 10^3/uL (4.0-10.0)
[2022-08-10] MEDS: METOPROLOL 5 MG/5 ML VIAL IV SCH ×12 (17:35→22:11)
[2022-08-10 17:43] LABS: CK-MB VALUE MASS 3.5 NG/ML (<3.6)
[2022-08-10 17:44] LABS: LIPASE 53 U/L (12-53)
[2022-08-10 17:45] LABS: CPK CREATINE PHOSPHOKINASE 288 U/L (46-171); MB/CK RELATIVE INDEX 1.21 (< OR =4)
[2022-08-10 17:46] LABS: ALBUMIN 3.4 G/DL (3.2-5.2); ALKALINE PHOSPHATASE 47 U/L (46-116); ALT/SGPT 71 U/L (7.0-40); AST/SGOT 31 U/L (<34); BILIRUBIN,DIRECT 0.4 MG/DL (<0.4); BILIRUBIN,TOTAL 1.1 MG/DL (0.3-1.2); BLOOD UREA NITROGEN 24 MG/DL (9-23); CALCIUM LEVEL 8.6 MG/DL (8.5-10.1); CARBON DIOXIDE LEVEL 27 MMOL/L (20-31); CHLORIDE LEVEL 109 MMOL/L (98-107); CREATININE FOR GFR 1.59 MG/DL (0.70-1.30); GLUCOSE, FASTING 95 MG/DL (60-100); POTASSIUM SERUM 4.3 MMOL/L (3.5-5.1); SODIUM LEVEL 142 MMOL/L (136-145); TOTAL PROTEIN 6.4 G/DL (5.7-8.2)
[2022-08-10 17:48] LABS: FREE T4 1.38 NG/DL (0.89-1.76)
[2022-08-10] MEDS ORDERED: ISOVUE-370 76% 100ML VIAL As Ordered ONE (17:48)
[2022-08-10 18:09] LABS: THYROID STIMULATING HORMONE 1.407 uIU/ML (0.55-4.78)
[2022-08-10 18:32] LABS: DIGOXIN LEVEL < 0.1 NG/ML (0.8-2.0)
[2022-08-10 18:47] LABS: CK-MB VALUE MASS 3.3 NG/ML (<3.6)
[2022-08-10 18:49] LABS: MB/CK RELATIVE INDEX 1.17 (< OR =4)
[2022-08-10] MEDS ORDERED: DIGOXIN INJ 0.5 MG/2 ML AMP IV ONE (19:55)
[2022-08-10 20:22] LABS: CK-MB VALUE MASS 3.3 NG/ML (<3.6)
[2022-08-10 20:25] LABS: MB/CK RELATIVE INDEX 1.28 (< OR =4)
[2022-08-10] MEDS ORDERED: DIGOXIN 0.25 MG TAB PO STA (21:42)
[2022-08-10 22:25] LABS: RSV AMPLIFICATION NEGATIVE (NEGATIVE)
[2022-08-11] MEDS ORDERED: DIGOXIN INJ 0.5 MG/2 ML AMP IV ONE (00:50)
[2022-08-11] MEDS ORDERED: METOPROLOL TART 50 MG TAB PO ONE (00:50)
[2022-08-11] MEDS ORDERED: ACETAMINOPHEN TAB 650MG DOSE (2X325MG) PO PRN (01:25)
[2022-08-11] MEDS ORDERED: FUROSEMIDE 40MG/4ML VIAL IV ONE (02:00)
[2022-08-11] MEDS ORDERED: METO50TA7 PO (05:57)
[2022-08-11] MEDS ORDERED: VITA100093 PO (05:57)
[2022-08-11] MEDS ORDERED: DICL1GEL3 TOP (05:57)
[2022-08-11] MEDS ORDERED: MIRT-62 PO (05:57)
[2022-08-11] MEDS ORDERED: BENA40TA84 PO (05:57)
[2022-08-11] MEDS ORDERED: GENT1SOL16 OU (05:57)
[2022-08-11] MEDS ORDERED: DIGO0.123 PO (05:57)
[2022-08-11] MEDS ORDERED: HOME MED LIST COMPLETE! XX SCH (06:00)
[2022-08-11] MEDS: METOPROLOL TART 50 MG TAB PO SCH ×3 (07:41→17:33)
[2022-08-11 07:51] LABS: BLOOD UREA NITROGEN 19 MG/DL (9-23); CALCIUM LEVEL 8.2 MG/DL (8.5-10.1); CARBON DIOXIDE LEVEL 23 MMOL/L (20-31); CHLORIDE LEVEL 109 MMOL/L (98-107); CREATININE FOR GFR 1.42 MG/DL (0.70-1.30); GLOMERULAR FILTRATION RATE > 60.0 (>56); GLUCOSE, FASTING 74 MG/DL (60-100); POTASSIUM SERUM 4.2 MMOL/L (3.5-5.1); SODIUM LEVEL 141 MMOL/L (136-145)
[2022-08-11] MEDS ORDERED: ASPIRIN 81MG CHEW TABLET PEG SCH (09:00)
[2022-08-11] MEDS: ATORVASTATIN 20 MG TAB PO SCH (09:04)
[2022-08-11] MEDS: SERTRALINE 100 MG TAB PO SCH (09:05)
[2022-08-11] MEDS: FUROSEMIDE 40MG/4ML VIAL IV SCH ×2 (09:05→17:27)
[2022-08-11] MEDS: APIXABAN 5 MG TAB (ELIQUIS) PO SCH ×2 (09:05→21:07)
[2022-08-11] MEDS: ASPIRIN 81MG CHEW TABLET PO SCH (09:22)
[2022-08-11 14:00] VITALS: BP 150/110
[2022-08-11 16:00] VITALS: BP 130/100
[2022-08-11 19:44] VITALS: BP 134/87
[2022-08-11] MEDS ORDERED: MIRTAZAPINE 15 MG TAB PO SCH (21:00)
[2022-08-11 23:35] VITALS: BP 135/97
[2022-08-12] MEDS: METOPROLOL TART 50 MG TAB PO SCH ×3 (01:49→12:29)
[2022-08-12 03:41] VITALS: BP 139/91
[2022-08-12 06:21] LABS: BASO # 0.1 10^3/uL (0.0-0.2); BASO % 1.1 % (0.0-1.0); EOS # 0.2 10^3/uL (0.0-0.5); EOS % 3.3 % (0.0-3.0); HEMATOCRIT 42.4 % (42.0-52.0); LYMPH # 1.6 10^3/uL (1.5-5.0); MONO # 0.7 10^3/uL (0.0-0.8); MONO % 15.4 % (2.0-8.0); PLATELET COUNT, AUTOMATED 193 10^3/uL (150-450); RED BLOOD COUNT 4.66 10^6/uL (4.30-6.10); WHITE BLOOD COUNT 4.5 10^3/uL (4.0-10.0)
[2022-08-12 06:45] LABS: CALCIUM LEVEL 8.7 MG/DL (8.5-10.1); CREATININE FOR GFR 1.55 MG/DL (0.70-1.30); GLOMERULAR FILTRATION RATE 59.7 (>56); POTASSIUM SERUM 3.5 MMOL/L (3.5-5.1)
[2022-08-12 07:37] VITALS: BP 131/80
[2022-08-12] MEDS: FUROSEMIDE 40MG/4ML VIAL IV SCH (08:19)
[2022-08-12] MEDS: ASPIRIN 81MG CHEW TABLET PO SCH (08:20)
[2022-08-12] MEDS: APIXABAN 5 MG TAB (ELIQUIS) PO SCH (08:21)
[2022-08-12] MEDS: ATORVASTATIN 20 MG TAB PO SCH (08:21)
[2022-08-12] MEDS: SERTRALINE 100 MG TAB PO SCH (08:22)
[2022-08-12] MEDS ORDERED: BENA40TA84 PO (10:54)
[2022-08-12] MEDS ORDERED: LASI40TA9 PO ×2 (10:54→14:22)
[2022-08-12] MEDS ORDERED: POTA-149 PO ×2 (10:54→14:22)
[2022-08-12 11:56] VITALS: BP 132/80
[2022-08-12 12:29] VITALS: BP 132/80
== END 2022-08-12 14:07 | disposition home or self-care (01) | DRG 291 ==
LOC: M ED 13:56 → M ED INP 08-11 01:25 → ENRESERV 08-11 13:22 → M PCU 08-11 14:00
PROVIDERS: ADMIT Internal Medicine; ATTEND Internal Medicine
PROC: B246ZZZ Ultrasonography of Right and Left Heart (ICD-10-PCS; principal; 2022-08-11)
DX: I13.0 Hypertensive heart and chronic kidney disease with heart failure and stage 1 through stage 4 chronic kidney disease, or unspecified chronic kidney disease (principal); I50.33 Acute on chronic diastolic (congestive) heart failure; N17.9 Acute kidney failure, unspecified; I48.91 Unspecified atrial fibrillation; K43.9 Ventral hernia without obstruction or gangrene; R19.7 Diarrhea, unspecified; I34.0 Nonrheumatic mitral (valve) insufficiency; N18.30 Chronic kidney disease, stage 3 unspecified; F32.A Depression, unspecified; I27.20 Pulmonary hypertension, unspecified; Z79.01 Long term (current) use of anticoagulants; Z79.899 Other long term (current) drug therapy; Z20.822 Contact with and (suspected) exposure to COVID-19